=== PATIENT | male | born 1955 | race Caucasian/White ===

== ENCOUNTER 2024-09-14 17:44 | Outpatient (BNV) | payer OTHER, SELFPAY | END 2024-10-06 15:00 | PROVIDERS: Admitting Provider Psychiatry & Neurology Psychiatry; Visit Provider Internal Medicine | DX: I48.91 Unspecified atrial fibrillation (principal) | CPT/HCPCS: 93010 ==

== ENCOUNTER 2024-09-14 17:44 | Inpatient (IN) | payer OTHER, SELFPAY ==
[2024-09-14 18:17] VITALS: BMI 26.3
[2024-09-14 18:18] VITALS: BP 135/85; PULSE 89; RESP 18; TEMP 36.9; O2SAT 99
--- NOTE | 2024-09-14 19:15 | PC.ADMIT ---
Addendum entered by Shanthi Lang RN 09/14/24 19:17: Admitting Diagnoses: MDD-Severe, SI Original Note: 68 year old white male admitted to [facility]2 at 1810 from [facility] via ambulance on a 12 b signed in our ER. He refused to sign any paperwork including all ERWIN'S. His affect is blunted with poor eye contact. He said that he is homeless and that nobody can help him get better. He says that he feels like he has thoughts about hurting himself but no plan. He has +2 edema in bilateral feet. He has a small bruise in his LAC area that is fading. He said that he doesn't want to eat and won't fill out our menus. His other diagnoses include A Fib, HTN, CVA, Chronic B12 Deficiency, Bladder CA, Chronic Back Pain, Hypocholesteremia , Multi Level Degenerative Disk Disease and Sciatica. His weight is 168.2 pounds. Vital signs 98.5-18-89-99% and 135/85, left upper arm sitting. He only brought a light green kaci shirt with him. He never smoked. He said that he was a registered sex offender from 40 years ago in [place] or [place]. He denies pain. He is alert to self and place with poor insight into his situation. He says that he hears voices but won't elaborate on what they say. He needs a sitter for safety. Faith Desai CANAL EQUIPMENT MECHANIC updated on patients arrival. Patient has allergies to Vicodin, Acetaminophen and Lisinopril.
[2024-09-14] MEDS: Mirtazapine 15 MG TABLET PO (22:08)
[2024-09-14] MEDS: risperiDONE 1 MG TABLET PO (22:08)
[2024-09-14] MEDS: levETIRAcetam 500 MG TABLET 1500 MG PO (22:08)
[2024-09-14] MEDS: Docusate Sodium 100 MG CAPSULE PO (22:08)
[2024-09-14] MEDS: Atorvastatin Calcium 40 MG TABLET PO (22:08)
[2024-09-14] MEDS: Apixaban 5 MG TABLET PO (22:08)
[2024-09-15 07:54] LABS: Estimated Average Glucose 117 mg/dL; Hemoglobin A1c % 5.7 % (<6.0); Total Hemoglobin (HGBA1C) 3380.8135 umol/L
[2024-09-15 07:55] VITALS: BP 107/71; PULSE 88; RESP 18; TEMP 36.8; O2SAT 95
[2024-09-15 08:02] LABS: Alanine Aminotransferase 13 U/L (0-40); Albumin Level 3.1 g/dL (3.5-5.0); Anion Gap 11 (12-20); Aspartate Amino Transferase 24 U/L (5-37); Bilirubin Total 0.6 mg/dL (0.0-1.0); Blood Urea Nitrogen 15 mg/dL (9-16); Carbon Dioxide 29 mmol/L (22-29); Chloride 108 mmol/L (96-108); Cholesterol 154 mg/dL (<200); Creatinine Clr Calc Pharmacy 81.4; Estimated Glomerular Filt Rate > 60; Glucose Random 90 mg/dL (60-115); HDL Cholesterol 32 mg/dL (>40); LDL Cholesterol Calculated 101 mg/dL (<100); Potassium 3.9 mmol/L (3.3-5.1); Sodium 144 mmol/L (135-145); Total Protein 5.6 g/dL (6.5-8.0); Triglycerides 108 mg/dL (<150)
[2024-09-15] MEDS: Docusate Sodium 100 MG CAPSULE PO ×2 (08:09→21:36)
[2024-09-15] MEDS: Apixaban 5 MG TABLET PO ×2 (08:09→21:36)
[2024-09-15] MEDS: levETIRAcetam 500 MG TABLET 1500 MG PO ×2 (08:09→21:36)
[2024-09-15] MEDS: Metoprolol Succinate ER 50 MG TAB.ER.24H PO (08:09)
--- NOTE | 2024-09-15 08:45 | HO.PM.IMCN ---
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 Pt was at [facility] facility when clinical line maintenance technician came into patient's room and found him with one leg swung out over the windowsill, stating that he was attempting to jump out of the window in an SI attempt. Pt apparently has been having moments of AMS with the past few weeks. Medical consult for admission H&P. ?Pt seen and examined on the unit where he is noted to have severely flat affect and minimally responsive. Pt is alert and oriented to self only, and slow to respond to queries. Pt does not answer all questions, though does seemingly respond appropriately when he does speak. Follows commands appropriately. Pt denies any acute medical complaints at the moment. No chest pain/pressure, palpitations. Denies shortness or breath or difficulty breathing. Denies fever, chills, N/V, abdominal pain. Vitals reviewed, stable and WNL. Labs from [facility] reviewed, grossly unremarkable. However, pt had previously been diagnosed with a B12 deficiency which was thought possibly contributory to AMS, though MDD with psychosis more likely. Review of Systems Review of Systems: Negative except for that which is stated in the HPI. However, she will be noted pt is a relatively poor and vague historian. [facility] Medical History (Updated 09/15/24 @ 09:55 by BRIA Nunez) HTN (hypertension) CVA (cerebral vascular accident) Chronic a-fib Social History Household Members: Spouse Housing: Apartment Do you presently have visiting nurse or other home services: No Patient Tobacco Use Status: Never used Tobacco e-Cigarette/Vaping Use: Never Used Advance Directives: No Advance Directives Information Provided: No Do you have a plan to hurt others: No Plan Recently lost weight without trying: Unsure Meds Allergies Allergy/AdvReac Type Severity Reaction Status Date / Time acetaminophen Allergy Nausea Verified 09/14/24 18:37 hydrocodone [From Vicodin] Allergy Nausea and Verified 09/14/24 18:37 Vomiting lisinopril Allergy Cough Verified 09/14/24 18:37 Active Medications: Current Medications Al Hydroxide/Mg Hydroxide (Magnesium Hydrox/Alum Hydrox 30 Ml Oral.Susp) 30 ml PO Q6H PRN PRN Reason: Heartburn/Nausea Apixaban (Apixaban 5 Mg Tablet) 5 mg PO BID [facility] Last Admin: 09/15/24 08:09 Dose: 5 mg Atorvastatin Calcium (Atorvastatin Calcium 40 Mg Tablet) 40 mg PO BEDTIME [facility] Last Admin: 09/14/24 22:08 Dose: 40 mg Docusate Sodium (Docusate Sodium 100 Mg Capsule) 100 mg PO BID [facility] Last Admin: 09/15/24 08:09 Dose: 100 mg Hydroxyzine HCl (Hydroxyzine Hcl 25 Mg Tablet) 25 mg PO Q6H PRN PRN Reason: mild anxiety Levetiracetam (Levetiracetam 500 Mg Tablet) 1,500 mg PO BID [facility] Last Admin: 09/15/24 08:09 Dose: 1,500 mg Lidocaine (Lidocaine 4 % Patch Adh..Patch) 1 patch TRANSDERMA DAILY [facility] Last Admin: 09/15/24 08:14 Dose: Not Given Magnesium Hydroxide (Milk Of Magnesia 30 Ml Oral.Susp) 30 ml PO DAILY PRN PRN Reason: Constipation Methocarbamol (Methocarbamol 500 Mg Tablet) 1,000 mg PO TID PRN PRN Reason: Muscle Spasm Metoprolol Succinate (Metoprolol Succinate Er 50 Mg Tab.Er.24h) 50 mg PO DAILY [facility]; Protocol Last Admin: 09/15/24 08:09 Dose: 50 mg Mirtazapine (Mirtazapine 15 Mg Tablet) 15 mg PO BEDTIME [facility] Last Admin: 09/14/24 22:08 Dose: 15 mg Polyethylene Glycol (Polyethylene Glycol 3350 17 Gm Powd.Pack) 17 gm PO DAILY PRN PRN Reason: Constipation Risperidone (Risperidone 1 Mg Tablet) 1 mg PO BEDTIME [facility] Last Admin: 09/14/24 22:08 Dose: 1 mg Trazodone HCl (Trazodone Hcl 50 Mg Tablet) 50 mg PO BEDTIME MRX1 PRN PRN Reason: Insomnia Home Medications ?Medication ?Instructions ?Recorded ?Confirmed ?Last Taken ?Type apixaban 5 mg tablet 5 mg PO BID 09/14/24 09/14/24 Unknown History atorvastatin 40 mg tablet 40 mg PO BEDTIME 09/14/24 09/14/24 Unknown History docusate sodium 100 mg capsule 100 mg PO BID 09/14/24 09/14/24 Unknown History ibuprofen 600 mg tablet 600 mg PO Q6H PRN Pain 09/14/24 09/14/24 Unknown History levetiracetam 750 mg tablet 1,500 mg PO BID 09/14/24 09/14/24 Unknown History lidocaine 5 % topical patch 1 patch topical DAILY 09/14/24 09/14/24 Unknown History methocarbamol 500 mg tablet 1,000 mg PO TID PRN Muscle Spasm 09/14/24 09/14/24 Unknown History metoprolol succinate 50 mg 50 mg PO DAILY 09/14/24 09/14/24 Unknown History tablet,extended release 24 hr mirtazapine 15 mg tablet 15 mg PO BEDTIME 09/14/24 09/14/24 09/13/24 21:00 History polyethylene glycol 3350 17 gram 17 g PO DAILY PRN Constipation 09/14/24 09/14/24 Unknown History oral powder packet risperidone 1 mg tablet 1 mg PO BEDTIME 09/14/24 09/14/24 09/13/24 21:00 History Physical Exam Vital Signs and Narrative: Vital Signs: Last Vital Signs Temp 98.5 F 09/14/24 18:18 Pulse 89 09/14/24 18:18 Resp 18 09/14/24 18:18 BP 135/85 09/14/24 18:18 Pulse Ox 99 09/14/24 18:18 O2 Del Method Room Air 09/14/24 18:18 BMI result Body Mass Index 26.3 General: Alert and oriented to person only. In no acute distress Resp: CTA bilaterally CVS: Irregularly irregular rhythm. GI: +BS, NT, no distention Skin: Warm, dry Neuro: Cranial nerves II-XII grossly intact bilaterally. Motor grossly intact bilaterally Extremities: No edema Psych: Flat affect. Minimally responsive, not answering all questions, slow to respond. Follows commands. 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 Pt was at [facility] facility when clinical line maintenance technician came into patient's room and found him with one leg swung out over the windowsill, stating that he was attempting to jump out of the window in an SI attempt. Pt apparently has been having moments of AMS with the past few weeks. Medical consult for admission H&P. Mood disorder Plan as per Psychiatry Chronic AFib Continue Eliquis, metoprolol Idiopathic focal epilepsy Unclear date of last seizure Continue levetiracetam Hx of CVA No known focal deficits Continue statin B12 deficiency Recently diagnosed, does not appear to be on supplementation Will check B12 levels Had supplementation as necessary Thank you for allowing us to participate in the care of this pt. Will sign for now. Please re-consult if any acute issue or need arises.
[2024-09-15 12:58] LABS: Alkaline Phosphatase 80 U/L (39-117)
[2024-09-15 20:00] VITALS: BP 110/71; PULSE 90; RESP 18; TEMP 36.8; O2SAT 94
[2024-09-15] MEDS: risperiDONE 1 MG TABLET PO (21:35)
[2024-09-15] MEDS: Atorvastatin Calcium 40 MG TABLET PO (21:36)
[2024-09-15] MEDS: Mirtazapine 15 MG TABLET PO (21:36)
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
[2024-09-16 08:00] VITALS: BP 106/73; PULSE 104; RESP 18; TEMP 36.9; O2SAT 96
[2024-09-16] MEDS: Metoprolol Succinate ER 50 MG TAB.ER.24H PO (09:20)
[2024-09-16] MEDS: levETIRAcetam 500 MG TABLET 1500 MG PO ×2 (09:20→20:33)
[2024-09-16] MEDS: Apixaban 5 MG TABLET PO ×2 (09:20→20:33)
[2024-09-16] MEDS: Docusate Sodium 100 MG CAPSULE PO ×2 (09:20→20:40)
[2024-09-16 16:42] LABS: Vitamin B12 614 pg/mL (200-900)
[2024-09-16 19:52] VITALS: BP 119/87; PULSE 93; TEMP 36.9; O2SAT 98
[2024-09-16] MEDS: risperiDONE 1 MG TABLET PO (20:33)
[2024-09-16] MEDS: Atorvastatin Calcium 40 MG TABLET PO (20:33)
[2024-09-16] MEDS: Mirtazapine 15 MG TABLET PO (20:34)
--- NOTE | 2024-09-16 23:20 | P.PNPSI_ITS ---
Subjective Subjective Date of Service: 09/16/24 Reason For Visit: si confusion psychosis Subjective Notes: Conditional Voluntary Healthcare Proxy: Yes Interim History: Patient seen psychiatric follow-up, chart reviewed patient's case discussed in treatment team. Patient exhibits thought blocking limited speech when he does speak has been talking about needing to register as a sex offender having no place to live refusing food and fluids at times needs much encouragement T drink and take his medication Staring off into space at times appears to be posturing was treated with lorazepam at other hospital did not seem to be helpful Mental Status Exam Mental Status Exam Narrative: Patient seen sitting in the kitchen he is sitting in a rigid manner delayed speech awake mood restricted no facial limited facial expression not rigid on exam no gross tremor often does not respond to questioning at times mumbling in response other times non informational briefly responding one-word answers that make no sense Diagnostics Vital Signs (24Hr): Vital Signs - 24 hr 09/16/24 08:00 09/16/24 19:52 Temperature 98.4 F 98.4 F Pulse Rate 104 H 93 Respiratory Rate 18 Blood Pressure 106/73 119/87 Pulse Oximetry 96 98 Oxygen Delivery Method Room Air Room Air BMI result Body Mass Index 26.3 Labs 09/15/24 07:34 Labs: Laboratory Results - last 48 hr 09/15/24 09/16/24 07:34 15:38 Sodium 144 Potassium 3.9 Chloride 108 Carbon Dioxide 29 Anion Gap 11 L BUN 15 Creatinine 0.80 Estim Creat Clear Calc 81.4 Estimated GFR > 60 Random Glucose 90 Estimat Average Glucose 117 Hemoglobin A1c % 5.7 Calcium 9.0 Total Bilirubin 0.6 AST 24 ALT 13 Alkaline Phosphatase 80 Total Protein 5.6 L Albumin 3.1 L Triglycerides 108 Cholesterol 154 LDL Cholesterol, Calc 101 H HDL Cholesterol 32 L Vitamin B12 614 Folate 9.0 Medications Medications Current Medications Al Hydroxide/Mg Hydroxide (Magnesium Hydrox/Alum Hydrox 30 Ml Oral.Susp) 30 ml PO Q6H PRN PRN Reason: Heartburn/Nausea Apixaban (Apixaban 5 Mg Tablet) 5 mg PO BID [facility] Last Admin: 09/16/24 20:33 Dose: 5 mg Atorvastatin Calcium (Atorvastatin Calcium 40 Mg Tablet) 40 mg PO BEDTIME [facility] Last Admin: 09/16/24 20:33 Dose: 40 mg Docusate Sodium (Docusate Sodium 100 Mg Capsule) 100 mg PO BID [facility] Last Admin: 09/16/24 20:40 Dose: 100 mg Hydroxyzine HCl (Hydroxyzine Hcl 25 Mg Tablet) 25 mg PO Q6H PRN PRN Reason: mild anxiety Levetiracetam (Levetiracetam 500 Mg Tablet) 1,500 mg PO BID [facility] Last Admin: 09/16/24 20:33 Dose: 1,500 mg Lidocaine (Lidocaine 4 % Patch Adh..Patch) 1 patch TRANSDERMA DAILY [facility] Last Admin: 09/16/24 09:22 Dose: Not Given Magnesium Hydroxide (Milk Of Magnesia 30 Ml Oral.Susp) 30 ml PO DAILY PRN PRN Reason: Constipation Memantine (Memantine Hcl 5 Mg Tablet) 5 mg PO DAILY [facility] Methocarbamol (Methocarbamol 500 Mg Tablet) 1,000 mg PO TID PRN PRN Reason: Muscle Spasm Metoprolol Succinate (Metoprolol Succinate Er 50 Mg Tab.Er.24h) 50 mg PO DAILY [facility]; Protocol Last Admin: 09/16/24 09:20 Dose: 50 mg Mirtazapine (Mirtazapine 7.5 Mg Tablet) 22.5 mg PO BEDTIME [facility] Polyethylene Glycol (Polyethylene Glycol 3350 17 Gm Powd.Pack) 17 gm PO DAILY PRN PRN Reason: Constipation Risperidone (Risperidone 1 Mg Tablet) 1 mg PO BEDTIME [facility] Last Admin: 09/16/24 20:33 Dose: 1 mg Trazodone HCl (Trazodone Hcl 50 Mg Tablet) 50 mg PO BEDTIME MRX1 PRN PRN Reason: Insomnia Allergies Allergies Allergy/AdvReac Type Severity Reaction Status Date / Time acetaminophen Allergy Nausea Verified 09/14/24 18:37 hydrocodone [From Vicodin] Allergy Nausea and Verified 09/14/24 18:37 Vomiting lisinopril Allergy Cough Verified 09/14/24 18:37 Assessment & Plan Assessment & Plan (1) CVA (cerebral vascular accident): Status: Acute Code(s): I63.9 - Cerebral infarction, unspecified (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: Status: Acute Code(s): G40.209 - Localization-related (focal) (partial) symptomatic epilepsy and epileptic syndromes with complex partial seizures, not intractable, without status epilepticus (3) Chronic a-fib: Status: Acute Code(s): I48.20 - Chronic atrial fibrillation, unspecified (4) B12 deficiency: Status: Acute Code(s): E53.8 - Deficiency of other specified B group vitamins (5) Major depression with psychotic features: Status: Acute Code(s): F32.3 - Major depressive disorder, single episode, severe with psychotic features Plan Patient is a 68-year-old male with a reported history of atrial fibrillation nonconvulsive single origin seizures severe B12 deficiency some diffuse brain atrophy white matter lesions and cerebellar infarct how presenting with depressive symptoms recent thoughts of suicide and psychotic symptoms. Healthcare proxy invoked patient does not at this time. Able to taken information we then information and make judgments. Wellbutrin recently discontinued would continue Risperdal and mirtazapine. Will trying get Neurology involved MRI and EEG reviewed continue B12 for placement unclear if primary psychiatric disorder versus secondary to neurodegenerative condition perhaps worsened by B12 deficiency continue Keppra continue Eliquis monitor patient's safety Call placed to both healthcare proxy was unable to reach either daughter or patient keeps stating ex- unclear if this is reality based or not also unclear if patient's guilt is totally delusional there was some event that happened many years the past he reportedly had been arrested later exonerated. 09/16/2024 Continue Risperdal mirtazapine Keppra. Patient has healthcare proxy his ex- patient unable taken information expressed clear decisions his communication is limited peers delusional spends much time staring unclear if this relates to atypical seizure disorder versus psychotic depression question of catatonia variant. Seen neurological workup from his hospitalization including MRI EEG. Trying to get additional history from healthcare proxy family patient does have 2 daughters he reportedly lives with his ex- Informed Consent: does not understand Reason for continued inpatient stay Substantial Risk for: inability to function, rapid decompensation and med/psych decompensation Time Spent With Patient Time: Total time managing care of this patient today ____ minutes.
[2024-09-17 08:00] VITALS: BP 132/81; PULSE 68; RESP 18; TEMP 36.4; O2SAT 99
[2024-09-17] MEDS: Apixaban 5 MG TABLET PO (12:20)
[2024-09-17] MEDS: levETIRAcetam 500 MG TABLET 1500 MG PO (12:20)
[2024-09-17] MEDS: Cyanocobalamin (Vitamin B-12) 1,000 MCG/ML VIAL 1000 MCG IM (12:29)
[2024-09-17 20:00] VITALS: BP 121/57; PULSE 87; RESP 16; TEMP 36.3; O2SAT 98
--- NOTE | 2024-09-17 22:36 | PC.NURSE ---
Patient declined HS medication, educated by business writer about the importance of taking prescribed medications, Dr. Melo notified.
--- NOTE | 2024-09-17 23:28 | HO.PSYCHPN ---
Subjective Subjective Date of Service: 09/17/24 Reason For Visit: si confusion psychosis Subjective Notes: Conditional Voluntary Healthcare Proxy: Yes Interim History: Patient seen in psychiatric follow-up. Patient case reviewed in treatment team case discussed with patient's ex- his healthcare proxy that he lives with. Patient needs much encouragement to eat and drink sits and stares much time discussed with patient's healthcare proxy giving patient Valium injection if refusing Keppra unclear if staring lack of engagement relates to his atypical seizure disorder recently diagnosed. Mental Status Exam Mental Status Exam Narrative: Patient seen generally refusing to engaged not speaking some intake. Generally non informational encourage to eat drink take medication But did not engaged mostly seen staring unable to answer thoughts of harm to self or others Diagnostics Vital Signs (24Hr): Vital Signs - 24 hr 09/17/24 08:00 09/17/24 20:00 Temperature 97.5 F 97.4 F Pulse Rate 68 87 Respiratory Rate 18 16 Blood Pressure 132/81 121/57 L Pulse Oximetry 99 98 Oxygen Delivery Method Room Air Room Air BMI result Body Mass Index 26.3 Labs 09/15/24 07:34 Labs: Laboratory Results - last 48 hr 09/16/24 15:38 Vitamin B12 614 Folate 9.0 Medications Medications Current Medications Al Hydroxide/Mg Hydroxide (Magnesium Hydrox/Alum Hydrox 30 Ml Oral.Susp) 30 ml PO Q6H PRN PRN Reason: Heartburn/Nausea Apixaban (Apixaban 5 Mg Tablet) 5 mg PO BID [facility] Last Admin: 09/17/24 22:13 Dose: Not Given Atorvastatin Calcium (Atorvastatin Calcium 40 Mg Tablet) 40 mg PO BEDTIME [facility] Last Admin: 09/17/24 22:14 Dose: Not Given Cyanocobalamin (Cyanocobalamin (Vitamin B-12) 1,000 Mcg/Ml Vial) 1,000 mcg IM Q30D [facility] Last Admin: 09/17/24 12:29 Dose: 1,000 mcg Docusate Sodium (Docusate Sodium 100 Mg Capsule) 100 mg PO BID [facility] Last Admin: 09/17/24 22:14 Dose: Not Given Hydroxyzine HCl (Hydroxyzine Hcl 25 Mg Tablet) 25 mg PO Q6H PRN PRN Reason: mild anxiety Levetiracetam (Levetiracetam 500 Mg Tablet) 1,500 mg PO BID [facility] Last Admin: 09/17/24 22:14 Dose: Not Given Lidocaine (Lidocaine 4 % Patch Adh..Patch) 1 patch TRANSDERMA DAILY [facility] Last Admin: 09/17/24 12:21 Dose: Not Given Magnesium Hydroxide (Milk Of Magnesia 30 Ml Oral.Susp) 30 ml PO DAILY PRN PRN Reason: Constipation Memantine (Memantine Hcl 5 Mg Tablet) 5 mg PO DAILY [facility] Last Admin: 09/17/24 12:21 Dose: Not Given Methocarbamol (Methocarbamol 500 Mg Tablet) 1,000 mg PO TID PRN PRN Reason: Muscle Spasm Metoprolol Succinate (Metoprolol Succinate Er 50 Mg Tab.Er.24h) 50 mg PO DAILY [facility]; Protocol Last Admin: 09/17/24 12:21 Dose: Not Given Mirtazapine (Mirtazapine 7.5 Mg Tablet) 22.5 mg PO BEDTIME [facility] Last Admin: 09/17/24 22:14 Dose: Not Given Polyethylene Glycol (Polyethylene Glycol 3350 17 Gm Powd.Pack) 17 gm PO DAILY PRN PRN Reason: Constipation Risperidone (Risperidone 1 Mg Tablet) 1 mg PO BEDTIME [facility] Last Admin: 09/17/24 22:14 Dose: Not Given Trazodone HCl (Trazodone Hcl 50 Mg Tablet) 50 mg PO BEDTIME MRX1 PRN PRN Reason: Insomnia Allergies Allergies Allergy/AdvReac Type Severity Reaction Status Date / Time acetaminophen Allergy Nausea Verified 09/14/24 18:37 hydrocodone [From Vicodin] Allergy Nausea and Verified 09/14/24 18:37 Vomiting lisinopril Allergy Cough Verified 09/14/24 18:37 Assessment & Plan Assessment & Plan (1) CVA (cerebral vascular accident): Status: Acute Code(s): I63.9 - Cerebral infarction, unspecified (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: Status: Acute Code(s): G40.209 - Localization-related (focal) (partial) symptomatic epilepsy and epileptic syndromes with complex partial seizures, not intractable, without status epilepticus (3) Chronic a-fib: Status: Acute Code(s): I48.20 - Chronic atrial fibrillation, unspecified (4) B12 deficiency: Status: Acute Code(s): E53.8 - Deficiency of other specified B group vitamins (5) Major depression with psychotic features: Status: Acute Code(s): F32.3 - Major depressive disorder, single episode, severe with psychotic features Plan Patient is a 68-year-old male with a reported history of atrial fibrillation nonconvulsive single origin seizures severe B12 deficiency some diffuse brain atrophy white matter lesions and cerebellar infarct how presenting with depressive symptoms recent thoughts of suicide and psychotic symptoms. Healthcare proxy invoked patient does not at this time. Able to taken information we then information and make judgments. Wellbutrin recently discontinued would continue Risperdal and mirtazapine. Will trying get Neurology involved MRI and EEG reviewed continue B12 for placement unclear if primary psychiatric disorder versus secondary to neurodegenerative condition perhaps worsened by B12 deficiency continue Keppra continue Eliquis monitor patient's safety Call placed to both healthcare proxy was unable to reach either daughter or patient keeps stating ex- unclear if this is reality based or not also unclear if patient's guilt is totally delusional there was some event that happened many years the past he reportedly had been arrested later exonerated. 09/17/2024 Extensive discussion with healthcare proxy patient appears to be staring thought consideration of status which patient apparently experienced that the other hospital. Healthcare proxy gave permission to give injection of Valium if needed patient did eventually accept p.o. medication. Still trying to reviewed differential between cognitive neurological condition Guardian/Caregiver educated on: diagnosis, medication risk/benefits and medical condition Informed Consent: further education needed Reason for continued inpatient stay Substantial Risk for: harm to self, inability to function, rapid decompensation and med/psych decompensation Time Spent With Patient Time: Total time managing care of this patient today ____ minutes.
[2024-09-18 07:55] VITALS: BP 120/76; PULSE 90; RESP 18; TEMP 36.8; O2SAT 98
[2024-09-18] MEDS: LORazepam 1 MG TABLET PO ×2 (15:01→20:18)
[2024-09-18 20:00] VITALS: BP 111/73; PULSE 93; RESP 18; TEMP 36.5; O2SAT 97
[2024-09-18] MEDS: Apixaban 5 MG TABLET PO (20:15)
[2024-09-18] MEDS: risperiDONE 1 MG TABLET PO (20:15)
[2024-09-18] MEDS: Atorvastatin Calcium 40 MG TABLET PO (20:16)
[2024-09-18] MEDS: Mirtazapine 7.5 MG TABLET 22.5 MG PO (20:17)
[2024-09-18] MEDS: levETIRAcetam 500 MG TABLET 1500 MG PO (20:18)
--- NOTE | 2024-09-18 21:01 | HO.PSYCHPN ---
Subjective Subjective Date of Service: 09/18/24 Reason For Visit: si confusion psychosis Subjective Notes: Conditional Voluntary Healthcare Proxy: Yes Interim History: Pt standing in one place severe psychomotor retardation minimal responses to language not eating drinking Medication Compliance: No Mental Status Exam Mental Status Exam Narrative: Patient seen generally refusing to engaged not speaking some intake. Generally non informational encourage to eat drink take medication But did not engaged mostly seen staring unable to answer thoughts of harm to self or others at times rigidly standing Diagnostics Vital Signs (24Hr): Vital Signs - 24 hr 09/18/24 07:55 Temperature 98.2 F Pulse Rate 90 Respiratory Rate 18 Blood Pressure 120/76 Pulse Oximetry 98 Oxygen Delivery Method Room Air BMI result Body Mass Index 26.3 Labs 09/15/24 07:34 Medications Medications Current Medications Al Hydroxide/Mg Hydroxide (Magnesium Hydrox/Alum Hydrox 30 Ml Oral.Susp) 30 ml PO Q6H PRN PRN Reason: Heartburn/Nausea Apixaban (Apixaban 5 Mg Tablet) 5 mg PO BID [facility] Last Admin: 09/18/24 20:15 Dose: 5 mg Atorvastatin Calcium (Atorvastatin Calcium 40 Mg Tablet) 40 mg PO BEDTIME [facility] Last Admin: 09/18/24 20:16 Dose: 40 mg Cyanocobalamin (Cyanocobalamin (Vitamin B-12) 1,000 Mcg/Ml Vial) 1,000 mcg IM Q30D [facility] Last Admin: 09/17/24 12:29 Dose: 1,000 mcg Docusate Sodium (Docusate Sodium 100 Mg Capsule) 100 mg PO BID [facility] Last Admin: 09/18/24 11:38 Dose: Not Given Hydroxyzine HCl (Hydroxyzine Hcl 25 Mg Tablet) 25 mg PO Q6H PRN PRN Reason: mild anxiety Levetiracetam (Levetiracetam 500 Mg Tablet) 1,500 mg PO BID [facility] Last Admin: 09/18/24 20:18 Dose: 1,500 mg Lidocaine (Lidocaine 4 % Patch Adh..Patch) 1 patch TRANSDERMA DAILY [facility] Last Admin: 09/18/24 11:38 Dose: Not Given Lorazepam (Lorazepam 1 Mg Tablet) 1 mg PO TID [facility] Last Admin: 09/18/24 20:18 Dose: 1 mg Magnesium Hydroxide (Milk Of Magnesia 30 Ml Oral.Susp) 30 ml PO DAILY PRN PRN Reason: Constipation Memantine (Memantine Hcl 5 Mg Tablet) 5 mg PO DAILY [facility] Last Admin: 09/18/24 11:38 Dose: Not Given Methocarbamol (Methocarbamol 500 Mg Tablet) 1,000 mg PO TID PRN PRN Reason: Muscle Spasm Metoprolol Succinate (Metoprolol Succinate Er 50 Mg Tab.Er.24h) 50 mg PO DAILY [facility]; Protocol Last Admin: 09/18/24 11:38 Dose: Not Given Mirtazapine (Mirtazapine 7.5 Mg Tablet) 22.5 mg PO BEDTIME [facility] Last Admin: 09/18/24 20:17 Dose: 22.5 mg Polyethylene Glycol (Polyethylene Glycol 3350 17 Gm Powd.Pack) 17 gm PO DAILY PRN PRN Reason: Constipation Risperidone (Risperidone 1 Mg Tablet) 1 mg PO BEDTIME [facility] Last Admin: 09/18/24 20:15 Dose: 1 mg Trazodone HCl (Trazodone Hcl 50 Mg Tablet) 50 mg PO BEDTIME MRX1 PRN PRN Reason: Insomnia Allergies Allergies Allergy/AdvReac Type Severity Reaction Status Date / Time acetaminophen Allergy Nausea Verified 09/14/24 18:37 hydrocodone [From Vicodin] Allergy Nausea and Verified 09/14/24 18:37 Vomiting lisinopril Allergy Cough Verified 09/14/24 18:37 Assessment & Plan Assessment & Plan (1) Major depression with psychotic features: Status: Acute Code(s): F32.3 - Major depressive disorder, single episode, severe with psychotic features (2) CVA (cerebral vascular accident): Status: Acute Code(s): I63.9 - Cerebral infarction, unspecified (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: Status: Acute Code(s): G40.209 - Localization-related (focal) (partial) symptomatic epilepsy and epileptic syndromes with complex partial seizures, not intractable, without status epilepticus (4) Chronic a-fib: Status: Acute Code(s): I48.20 - Chronic atrial fibrillation, unspecified (5) B12 deficiency: Status: Acute Code(s): E53.8 - Deficiency of other specified B group vitamins Plan Patient is a 68-year-old male with a reported history of atrial fibrillation nonconvulsive single origin seizures severe B12 deficiency some diffuse brain atrophy white matter lesions and cerebellar infarct how presenting with depressive symptoms recent thoughts of suicide and psychotic symptoms. Healthcare proxy invoked patient does not at this time. Able to taken information we then information and make judgments. Wellbutrin recently discontinued would continue Risperdal and mirtazapine. Will trying get Neurology involved MRI and EEG reviewed continue B12 for placement unclear if primary psychiatric disorder versus secondary to neurodegenerative condition perhaps worsened by B12 deficiency continue Keppra continue Eliquis monitor patient's [id number]/1809/18/24 neuro consult lorazepam for catatonia Patient educated on: diagnosis, medication risk/benefits and medical condition Guardian/Caregiver educated on: diagnosis and medication risk/benefits Informed Consent: further education needed Reason for continued inpatient stay Substantial Risk for: inability to function, rapid decompensation and med/psych decompensation Time Spent With Patient Time: Total time managing care of this patient today ____ minutes.
[2024-09-19 07:55] VITALS: BP 161/88; PULSE 97; RESP 18; TEMP 36.7; O2SAT 98
[2024-09-19] MEDS: Metoprolol Succinate ER 50 MG TAB.ER.24H PO (07:58)
[2024-09-19] MEDS: Memantine HCl 5 MG TABLET PO (07:58)
[2024-09-19] MEDS: LORazepam 1 MG TABLET PO ×3 (07:58→19:48)
[2024-09-19] MEDS: levETIRAcetam 500 MG TABLET 1500 MG PO ×2 (07:58→19:48)
[2024-09-19] MEDS: Apixaban 5 MG TABLET PO ×2 (07:59→19:48)
[2024-09-19] MEDS: Docusate Sodium 100 MG CAPSULE PO ×2 (07:59→19:48)
--- NOTE | 2024-09-19 16:54 | PM.NEUROCN ---
History of Present Illness Data of Consult Service Date: 09/19/24 Primary Care Provider: Unknown Physician HPI This is a 68-year-old male who does not provide much by way of Hx and is withdrawn, admitted with suicidal ideation and major depression. History obtained from medical records. Apparently , he has a history of ? atypical seizures, significant B12 deficiency, atrial fibrillation, history of DVT on anticoagulation and history of cerebellar stroke. He had recently been hospitalized in August 2024 for encephalopathy, with a diagnosis of B12 deficiency pernicious anemia. EEG showed diffuse background slowing. MRI showed chronic ischemic changes. He was noted to confusion delusional thinking and was thought to be suffering from B12 there psychiatric syndrome. He was referred to rehab and then referred back to the hospital after appearing depressed suicidal delusional with significantly impaired [place] and executive dysfunction. He had been preoccupied with the fact that he had been a sexual predator was ruminating about guilt but generally minimally verbal mostly withdrawn internally preoccupied minimally interacting. [facility] Past Medical History Medical History (Updated 09/15/24 @ 23:33 by Dayne Diaz MD) HTN (hypertension) CVA (cerebral vascular accident) Chronic a-fib Social History Social History Household Members: Spouse Housing: Apartment Do you presently have visiting nurse or other home services: No Patient Tobacco Use Status: Never used Tobacco e-Cigarette/Vaping Use: Never Used Currently Displaying Signs/Symptoms of Drug Intoxication Withdrawal: No Advance Directives: No Advance Directives Information Provided: No Do you have a plan to hurt others: No Plan Recently lost weight without trying: Unsure service: No Sexual orientation: Straight/Heterosexual Meds Allergies Allergy/AdvReac Type Severity Reaction Status Date / Time acetaminophen Allergy Nausea Verified 09/14/24 18:37 hydrocodone [From Vicodin] Allergy Nausea and Verified 09/14/24 18:37 Vomiting lisinopril Allergy Cough Verified 09/14/24 18:37 Active Medications: Current Medications Al Hydroxide/Mg Hydroxide (Magnesium Hydrox/Alum Hydrox 30 Ml Oral.Susp) 30 ml PO Q6H PRN PRN Reason: Heartburn/Nausea Apixaban (Apixaban 5 Mg Tablet) 5 mg PO BID [facility] Last Admin: 09/19/24 07:59 Dose: 5 mg Atorvastatin Calcium (Atorvastatin Calcium 40 Mg Tablet) 40 mg PO BEDTIME [facility] Last Admin: 09/18/24 20:16 Dose: 40 mg Cyanocobalamin (Cyanocobalamin (Vitamin B-12) 1,000 Mcg/Ml Vial) 1,000 mcg IM Q30D [facility] Last Admin: 09/17/24 12:29 Dose: 1,000 mcg Docusate Sodium (Docusate Sodium 100 Mg Capsule) 100 mg PO BID [facility] Last Admin: 09/19/24 07:59 Dose: 100 mg Hydroxyzine HCl (Hydroxyzine Hcl 25 Mg Tablet) 25 mg PO Q6H PRN PRN Reason: mild anxiety Levetiracetam (Levetiracetam 500 Mg Tablet) 1,500 mg PO BID [facility] Last Admin: 09/19/24 07:58 Dose: 1,500 mg Lidocaine (Lidocaine 4 % Patch Adh..Patch) 1 patch TRANSDERMA DAILY [facility] Last Admin: 09/19/24 08:02 Dose: Not Given Lorazepam (Lorazepam 1 Mg Tablet) 1 mg PO TID [facility] Last Admin: 09/19/24 14:34 Dose: 1 mg Magnesium Hydroxide (Milk Of Magnesia 30 Ml Oral.Susp) 30 ml PO DAILY PRN PRN Reason: Constipation Memantine (Memantine Hcl 5 Mg Tablet) 5 mg PO DAILY [facility] Last Admin: 09/19/24 07:58 Dose: 5 mg Methocarbamol (Methocarbamol 500 Mg Tablet) 1,000 mg PO TID PRN PRN Reason: Muscle Spasm Metoprolol Succinate (Metoprolol Succinate Er 50 Mg Tab.Er.24h) 50 mg PO DAILY [facility]; Protocol Last Admin: 09/19/24 07:58 Dose: 50 mg Mirtazapine (Mirtazapine 7.5 Mg Tablet) 22.5 mg PO BEDTIME [facility] Last Admin: 09/18/24 20:17 Dose: 22.5 mg Polyethylene Glycol (Polyethylene Glycol 3350 17 Gm Powd.Pack) 17 gm PO DAILY PRN PRN Reason: Constipation Risperidone (Risperidone 1 Mg Tablet) 1 mg PO BEDTIME [facility] Last Admin: 09/18/24 20:15 Dose: 1 mg Trazodone HCl (Trazodone Hcl 50 Mg Tablet) 50 mg PO BEDTIME MRX1 PRN PRN Reason: Insomnia Home Medications ?Medication ?Instructions ?Recorded ?Confirmed ?Last Taken ?Type apixaban 5 mg tablet 5 mg PO BID 09/14/24 09/14/24 Unknown History atorvastatin 40 mg tablet 40 mg PO BEDTIME 09/14/24 09/14/24 Unknown History docusate sodium 100 mg capsule 100 mg PO BID 09/14/24 09/14/24 Unknown History ibuprofen 600 mg tablet 600 mg PO Q6H PRN Pain 09/14/24 09/14/24 Unknown History levetiracetam 750 mg tablet 1,500 mg PO BID 09/14/24 09/14/24 Unknown History lidocaine 5 % topical patch 1 patch topical DAILY 09/14/24 09/14/24 Unknown History methocarbamol 500 mg tablet 1,000 mg PO TID PRN Muscle Spasm 09/14/24 09/14/24 Unknown History metoprolol succinate 50 mg 50 mg PO DAILY 09/14/24 09/14/24 Unknown History tablet,extended release 24 hr mirtazapine 15 mg tablet 15 mg PO BEDTIME 09/14/24 09/14/24 09/13/24 21:00 History polyethylene glycol 3350 17 gram 17 g PO DAILY PRN Constipation 09/14/24 09/14/24 Unknown History oral powder packet risperidone 1 mg tablet 1 mg PO BEDTIME 09/14/24 09/14/24 09/13/24 21:00 History Physical Exam Vital Signs: Vital Signs: Last Vital Signs Temp 98.0 F 09/19/24 07:55 Pulse 97 09/19/24 07:55 Resp 18 09/19/24 07:55 BP 161/88 H 09/19/24 07:55 Pulse Ox 98 09/19/24 07:55 O2 Del Method Room Air 09/19/24 07:55 BMI result Body Mass Index 26.3 Neuro: Other: withdrawn with poor cooperation with exam. Non focal exam grossly. 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 He is already of a moderately large dose of Keppra 1500mg bid. Would schedule another EEG. If it melchor snot show any Sz, would reduce dose of keppra to 1gm bid to see if his mentation improves. Out patient 48hr ambulatory EEG to try and pin down Dx of Sz. If that is negative, would reduce Keppra further to 500mg bid (2) Major depression with psychotic features: Status: Acute Treat depression. Recheck B12 levels and continue SQ B12 inj every week for a month then every 2 weeks. (3) CVA (cerebral vascular accident): Status: Acute No evidence of acute stroke. Obtain recent MRi done elsewhere and other med records Procedures Date of Service Date of Service: 09/19/24
[2024-09-19] MEDS: Atorvastatin Calcium 40 MG TABLET PO (19:48)
[2024-09-19] MEDS: risperiDONE 1 MG TABLET PO (19:48)
[2024-09-19] MEDS: Mirtazapine 7.5 MG TABLET 22.5 MG PO (19:48)
[2024-09-19 20:00] VITALS: BP 109/75; PULSE 90; TEMP 36.4; O2SAT 97
--- NOTE | 2024-09-19 22:18 | HO.PSYCHPN ---
Subjective Subjective Date of Service: 09/19/24 Reason For Visit: si confusion psychosis Interim History: Patient was seen in common room, after getting off phone with his . Asking about his clothes. Asking if is coming. Presents as more oriented, still come momentary confusions and some long delays in responses. Ruminative, expresses some vague regret about the past, does not share. Responded to a majority of questions, but many answers were not quite congruent. since I've been here, been going back, not forward, trying to get back to where I was also adds that I think about the things I have done, the things I have done weigh on me...I already explained this (to the other doctor MOod: not really so bad . Endorses transient passive SI, no plan or intent. Sleeping okay unsure how long. Denies AVH. Per staff, he is Review of Systems Review of Systems Negative except for that which is stated in the HPI. However, she will be noted pt is a relatively poor and vague historian. Mental Status Exam Mental Status Exam Patient Appearance: Well Grooomed (hair groomed, shirt mildly soiled) Patient Orientation: Person Level of Consciousness: Awake and Alert Patient Behavior: Guarded, Distractible and Isolative Mood Description: Anxious and Blunted Affect Description: Apathetic Patient Cognition Impaired: Yes Ability to Follow Directions: Fair Speech Pattern: Rambling and Delayed Memory Description: Immediate Impaired and Trip Follower Impaired Hallucinations: None Delusions: Not Present Thought Process: Distracted, Rumination and Slowed Thinking Thought Content: positive for Disoriented, positive for Preoccupation, positive for Evasive and positive for Suicidal Ideation Depressive Symptoms: Difficulty Concentrating Diagnostics Vital Signs (24Hr): Vital Signs - 24 hr 09/19/24 07:55 09/19/24 20:00 Temperature 98.0 F 97.5 F Pulse Rate 97 90 Respiratory Rate 18 Blood Pressure 161/88 H 109/75 Pulse Oximetry 98 97 Oxygen Delivery Method Room Air Room Air BMI result Body Mass Index 26.3 Labs 09/15/24 07:34 Medications Medications Current Medications Al Hydroxide/Mg Hydroxide (Magnesium Hydrox/Alum Hydrox 30 Ml Oral.Susp) 30 ml PO Q6H PRN PRN Reason: Heartburn/Nausea Apixaban (Apixaban 5 Mg Tablet) 5 mg PO BID [facility] Last Admin: 09/19/24 19:48 Dose: 5 mg Atorvastatin Calcium (Atorvastatin Calcium 40 Mg Tablet) 40 mg PO BEDTIME [facility] Last Admin: 09/19/24 19:48 Dose: 40 mg Cyanocobalamin (Cyanocobalamin (Vitamin B-12) 1,000 Mcg/Ml Vial) 1,000 mcg IM Q30D [facility] Last Admin: 09/17/24 12:29 Dose: 1,000 mcg Docusate Sodium (Docusate Sodium 100 Mg Capsule) 100 mg PO BID [facility] Last Admin: 09/19/24 19:48 Dose: 100 mg Hydroxyzine HCl (Hydroxyzine Hcl 25 Mg Tablet) 25 mg PO Q6H PRN PRN Reason: mild anxiety Levetiracetam (Levetiracetam 500 Mg Tablet) 1,500 mg PO BID [facility] Last Admin: 09/19/24 19:48 Dose: 1,500 mg Lidocaine (Lidocaine 4 % Patch Adh..Patch) 1 patch TRANSDERMA DAILY [facility] Last Admin: 09/19/24 08:02 Dose: Not Given Lorazepam (Lorazepam 1 Mg Tablet) 1 mg PO TID [facility] Last Admin: 09/19/24 19:48 Dose: 1 mg Magnesium Hydroxide (Milk Of Magnesia 30 Ml Oral.Susp) 30 ml PO DAILY PRN PRN Reason: Constipation Memantine (Memantine Hcl 5 Mg Tablet) 5 mg PO DAILY [facility] Last Admin: 09/19/24 07:58 Dose: 5 mg Methocarbamol (Methocarbamol 500 Mg Tablet) 1,000 mg PO TID PRN PRN Reason: Muscle Spasm Metoprolol Succinate (Metoprolol Succinate Er 50 Mg Tab.Er.24h) 50 mg PO DAILY [facility]; Protocol Last Admin: 09/19/24 07:58 Dose: 50 mg Mirtazapine (Mirtazapine 7.5 Mg Tablet) 22.5 mg PO BEDTIME [facility] Last Admin: 09/19/24 19:48 Dose: 22.5 mg Polyethylene Glycol (Polyethylene Glycol 3350 17 Gm Powd.Pack) 17 gm PO DAILY PRN PRN Reason: Constipation Risperidone (Risperidone 1 Mg Tablet) 1 mg PO BEDTIME [facility] Last Admin: 09/19/24 19:48 Dose: 1 mg Trazodone HCl (Trazodone Hcl 50 Mg Tablet) 50 mg PO BEDTIME MRX1 PRN PRN Reason: Insomnia Allergies Allergies Allergy/AdvReac Type Severity Reaction Status Date / Time acetaminophen Allergy Nausea Verified 09/14/24 18:37 hydrocodone [From Vicodin] Allergy Nausea and Verified 09/14/24 18:37 Vomiting lisinopril Allergy Cough Verified 09/14/24 18:37 Assessment & Plan Assessment & Plan (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 He is already of a moderately large dose of Keppra 1500mg bid. Would schedule another EEG. If it melchor snot show any Sz, would reduce dose of keppra to 1gm bid to see if his mentation improves. Out patient 48hr ambulatory EEG to try and pin down Dx of Sz. If that is negative, would reduce Keppra further to 500mg bid (2) Major depression with psychotic features: Status: Acute Code(s): F32.3 - Major depressive disorder, single episode, severe with psychotic features Assessment and Plan: Treat depression. Recheck B12 levels and continue SQ B12 inj every week for a month then every 2 weeks. (3) CVA (cerebral vascular accident): Status: Acute Code(s): I63.9 - Cerebral infarction, unspecified Assessment and Plan: No evidence of acute stroke. Obtain recent MRi done elsewhere and other med records Reason for continued inpatient stay Substantial Risk for: inability to function and rapid decompensation Time Spent With Patient Time: Total time managing care of this patient today ____ minutes.
--- NOTE | 2024-09-20 | EEG_ITS ---
FINDINGS: The waking background activity consists of a well-defined 10 Hz posterior alpha frequency that is seen symmetrically and attenuates well with eye opening while low voltage fast frequencies predominate anteriorly. Photic stimulation is without activation. Hyperventilation was omitted. No focal, lateralizing, or paroxysmal discharges seen. IMPRESSION: This waking EEG is within normal limits. MD CUONG Upton/YULISSA / [id number]
[2024-09-20 08:00] VITALS: BP 133/65; PULSE 91; RESP 18; O2SAT 98
[2024-09-20] MEDS: LORazepam 1 MG TABLET PO ×3 (08:47→20:32)
[2024-09-20] MEDS: Metoprolol Succinate ER 50 MG TAB.ER.24H PO (08:47)
[2024-09-20] MEDS: levETIRAcetam 500 MG TABLET 1500 MG PO ×2 (08:47→20:31)
[2024-09-20] MEDS: Docusate Sodium 100 MG CAPSULE PO ×2 (08:48→20:31)
[2024-09-20] MEDS: Memantine HCl 5 MG TABLET PO (08:48)
[2024-09-20] MEDS: Apixaban 5 MG TABLET PO ×2 (08:48→20:31)
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
[2024-09-20 20:00] VITALS: BP 144/102; PULSE 84; TEMP 36.6; O2SAT 99
[2024-09-20] MEDS: Atorvastatin Calcium 40 MG TABLET PO (20:31)
[2024-09-20] MEDS: risperiDONE 1 MG TABLET PO (20:32)
[2024-09-20] MEDS: Mirtazapine 7.5 MG TABLET 22.5 MG PO (20:32)
[2024-09-20] MEDS: traZODone HCL 50 MG TABLET PO (22:19)
[2024-09-20] MEDS: hydrOXYzine HCL 25 MG TABLET PO (22:19)
[2024-09-21 07:00] VITALS: BP 138/60; PULSE 87; RESP 18; TEMP 36.9; O2SAT 98
[2024-09-21] MEDS: Docusate Sodium 100 MG CAPSULE PO ×2 (08:03→19:59)
[2024-09-21] MEDS: LORazepam 1 MG TABLET PO ×3 (08:03→19:58)
[2024-09-21] MEDS: Apixaban 5 MG TABLET PO ×2 (08:03→19:58)
[2024-09-21] MEDS: Metoprolol Succinate ER 50 MG TAB.ER.24H PO (08:03)
[2024-09-21] MEDS: Memantine HCl 5 MG TABLET PO (08:03)
[2024-09-21] MEDS: levETIRAcetam 500 MG TABLET 1500 MG PO ×2 (08:03→19:59)
[2024-09-21 19:56] VITALS: BP 119/79; PULSE 83; RESP 16; TEMP 36.4; O2SAT 96
[2024-09-21] MEDS: risperiDONE 1 MG TABLET PO (19:58)
[2024-09-21] MEDS: Mirtazapine 7.5 MG TABLET 22.5 MG PO (19:58)
[2024-09-21] MEDS: Atorvastatin Calcium 40 MG TABLET PO (19:59)
[2024-09-22 07:55] VITALS: BP 108/61; PULSE 92; RESP 18; TEMP 37; O2SAT 92
[2024-09-22] MEDS: Memantine HCl 5 MG TABLET PO (08:05)
[2024-09-22] MEDS: Docusate Sodium 100 MG CAPSULE PO ×2 (08:05→20:39)
[2024-09-22] MEDS: Apixaban 5 MG TABLET PO ×2 (08:05→20:39)
[2024-09-22] MEDS: Metoprolol Succinate ER 50 MG TAB.ER.24H PO (08:05)
[2024-09-22] MEDS: levETIRAcetam 500 MG TABLET 1500 MG PO ×2 (08:05→20:39)
[2024-09-22] MEDS: LORazepam 1 MG TABLET PO ×3 (08:05→20:38)
[2024-09-22 20:00] VITALS: BP 115/73; PULSE 82; RESP 16; TEMP 37.3; O2SAT 97
[2024-09-22] MEDS: Atorvastatin Calcium 40 MG TABLET PO (20:39)
[2024-09-22] MEDS: risperiDONE 1 MG TABLET PO (20:39)
[2024-09-22] MEDS: Mirtazapine 7.5 MG TABLET 22.5 MG PO (20:39)
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
[2024-09-23 07:58] VITALS: BP 114/69; PULSE 84; RESP 16; TEMP 37; O2SAT 100
[2024-09-23] MEDS: Metoprolol Succinate ER 50 MG TAB.ER.24H PO (08:01)
[2024-09-23] MEDS: ARIPiprazole 5 MG TABLET PO (08:01)
[2024-09-23] MEDS: levETIRAcetam 250 MG TABLET 750 MG PO ×2 (08:02→20:34)
[2024-09-23] MEDS: Apixaban 5 MG TABLET PO ×2 (08:02→20:35)
[2024-09-23] MEDS: Docusate Sodium 100 MG CAPSULE PO ×2 (08:02→20:34)
[2024-09-23] MEDS: Memantine HCl 5 MG TABLET PO (08:02)
[2024-09-23] MEDS: LORazepam 1 MG TABLET PO ×3 (08:02→20:35)
--- NOTE | 2024-09-23 11:13 | PC.NURSE ---
ACLS score of 4.0. This indicates the lower functioning end of MODERATE cognitive impairment, closer to severe than mild. A person with this score would be expected to have severe difficulties solving any problems outside of their own simple routine. Safety awareness is very impaired and dangerous objects must be kept out of reach/sight. There would be no new independent learning ability, carryover would be limited and situation specific, skills may not be generalized. 4-12 yrs in terms of cognitive capacity. Needs 42% cognitive assistance.
[2024-09-23 11:21] VITALS: BMI 26.0
[2024-09-23 20:00] VITALS: BP 118/69; PULSE 82; RESP 16; TEMP 36.9; O2SAT 94
[2024-09-23] MEDS: Atorvastatin Calcium 40 MG TABLET PO (20:35)
[2024-09-23] MEDS: Mirtazapine 30 MG TABLET PO (20:35)
[2024-09-24 08:23] VITALS: BP 125/76; PULSE 94; RESP 16; TEMP 36.7; O2SAT 99
[2024-09-24] MEDS: Lidocaine 4 % Patch ADH..PATCH 1 PATCH TRANSDERMA (08:24)
[2024-09-24] MEDS: LORazepam 1 MG TABLET PO (08:26)
[2024-09-24] MEDS: Apixaban 5 MG TABLET PO ×2 (08:26→19:59)
[2024-09-24] MEDS: Docusate Sodium 100 MG CAPSULE PO ×2 (08:26→19:59)
[2024-09-24] MEDS: levETIRAcetam 250 MG TABLET 750 MG PO ×2 (08:26→19:59)
[2024-09-24] MEDS: Metoprolol Succinate ER 50 MG TAB.ER.24H PO (08:26)
[2024-09-24] MEDS: Memantine HCl 5 MG TABLET PO (08:26)
[2024-09-24] MEDS: ARIPiprazole 5 MG TABLET PO (08:26)
--- NOTE | 2024-09-24 11:27 | P.PNPSI_ITS ---
Subjective Subjective Date of Service: 09/24/24 Reason For Visit: si confusion psychosis Interim History: perseverative, labile, feeling confused. tearful. states he is having a hard time motivating to perform ADLs. appears to have severely impaired executive function. per staff, c/o high depression and anxiety. eating well. less hesitation. taking meds. slept well overnight. Mental Status Exam Mental Status Exam Narrative: Patient casually dressed psychomotor retarded slowed mentation. Patient knows he is in a hospital. Patient depressed ruminating of perceived deficits. cooperative. nml rate, incr amount of speech. constricted, labile (tearful). no SI/HI/AVH expressed. Diagnostics Vital Signs (24Hr): Vital Signs - 24 hr 09/23/24 20:00 09/24/24 08:23 Temperature 98.4 F 98.1 F Pulse Rate 82 94 Respiratory Rate 16 16 Blood Pressure 118/69 125/76 Pulse Oximetry 94 99 Oxygen Delivery Method Room Air Room Air BMI result Body Mass Index 26.0 Labs 09/15/24 07:34 Medications Medications Current Medications Al Hydroxide/Mg Hydroxide (Magnesium Hydrox/Alum Hydrox 30 Ml Oral.Susp) 30 ml PO Q6H PRN PRN Reason: Heartburn/Nausea Apixaban (Apixaban 5 Mg Tablet) 5 mg PO BID [facility] Last Admin: 09/24/24 08:26 Dose: 5 mg Aripiprazole (Aripiprazole 5 Mg Tablet) 5 mg PO DAILY [facility] Last Admin: 09/24/24 08:26 Dose: 5 mg Atorvastatin Calcium (Atorvastatin Calcium 40 Mg Tablet) 40 mg PO BEDTIME [facility] Last Admin: 09/23/24 20:35 Dose: 40 mg Cyanocobalamin (Cyanocobalamin (Vitamin B-12) 1,000 Mcg/Ml Vial) 1,000 mcg IM Q30D [facility] Last Admin: 09/17/24 12:29 Dose: 1,000 mcg Docusate Sodium (Docusate Sodium 100 Mg Capsule) 100 mg PO BID [facility] Last Admin: 09/24/24 08:26 Dose: 100 mg Hydroxyzine HCl (Hydroxyzine Hcl 25 Mg Tablet) 25 mg PO Q6H PRN PRN Reason: mild anxiety Last Admin: 09/20/24 22:19 Dose: 25 mg Levetiracetam (Levetiracetam 250 Mg Tablet) 750 mg PO BID [facility] Last Admin: 09/24/24 08:26 Dose: 750 mg Lidocaine (Lidocaine 4 % Patch Adh..Patch) 1 patch TRANSDERMA DAILY [facility] Last Admin: 09/24/24 08:24 Dose: 1 patch Lorazepam (Lorazepam 1 Mg Tablet) 1 mg PO TID [facility] Last Admin: 09/24/24 08:26 Dose: 1 mg Magnesium Hydroxide (Milk Of Magnesia 30 Ml Oral.Susp) 30 ml PO DAILY PRN PRN Reason: Constipation Memantine (Memantine Hcl 5 Mg Tablet) 5 mg PO DAILY [facility] Last Admin: 09/24/24 08:26 Dose: 5 mg Methocarbamol (Methocarbamol 500 Mg Tablet) 1,000 mg PO TID PRN PRN Reason: Muscle Spasm Metoprolol Succinate (Metoprolol Succinate Er 50 Mg Tab.Er.24h) 50 mg PO DAILY [facility]; Protocol Last Admin: 09/24/24 08:26 Dose: 50 mg Mirtazapine (Mirtazapine 30 Mg Tablet) 30 mg PO BEDTIME [facility] Last Admin: 09/23/24 20:35 Dose: 30 mg Polyethylene Glycol (Polyethylene Glycol 3350 17 Gm Powd.Pack) 17 gm PO DAILY PRN PRN Reason: Constipation Trazodone HCl (Trazodone Hcl 50 Mg Tablet) 50 mg PO BEDTIME MRX1 PRN PRN Reason: Insomnia Last Admin: 09/20/24 22:19 Dose: 50 mg Allergies Allergies Allergy/AdvReac Type Severity Reaction Status Date / Time acetaminophen Allergy Nausea Verified 09/14/24 18:37 hydrocodone [From Vicodin] Allergy Nausea and Verified 09/14/24 18:37 Vomiting lisinopril Allergy Cough Verified 09/14/24 18:37 Assessment & Plan Assessment & Plan (1) Major depression with psychotic features: Status: Acute Code(s): F32.3 - Major depressive disorder, single episode, severe with psychotic features (2) CVA (cerebral vascular accident): Status: Acute Code(s): I63.9 - Cerebral infarction, unspecified (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: Status: Acute Code(s): G40.209 - Localization-related (focal) (partial) symptomatic epilepsy and epileptic syndromes with complex partial seizures, not intractable, without status epilepticus (4) Chronic a-fib: Status: Acute Code(s): I48.20 - Chronic atrial fibrillation, unspecified (5) B12 deficiency: Status: Acute Code(s): E53.8 - Deficiency of other specified B group vitamins Plan Patient is a 68-year-old male with a reported history of atrial fibrillation nonconvulsive single origin seizures severe B12 deficiency some diffuse brain atrophy white matter lesions and cerebellar infarct how presenting with depressive symptoms recent thoughts of suicide and psychotic symptoms. Healthcare proxy invoked patient does not at this time. Able to taken information we then information and make judgments. Wellbutrin recently discontinued would continue Risperdal and mirtazapine. Will trying get Neurology involved MRI and EEG reviewed continue B12 for placement unclear if primary psychiatric disorder versus secondary to neurodegenerative condition perhaps worsened by B12 deficiency continue Keppra continue Eliquis monitor patient's safety09/1809/18/24 neuro consult lorazepam for catatonia 09/21/24 eeg ordered mirtazapine hs risperadol 09/22/24 eeg unl lower keppra start abilify recent catatonia psychotically distressed 09/24 anxious distress, recent catatonia, mood lability. increase ativan from 1 TID to 1.5 TID for now. otherwise continue current mgmt. EEG WNL. awaiting brain MRI from OSH for review. Reason for continued inpatient stay Substantial Risk for: inability to function Time Spent With Patient Time: Total time managing care of this patient today _25___ minutes.
[2024-09-24] MEDS: LORazepam 0.5 MG TABLET 1.5 MG PO ×2 (14:51→19:59)
[2024-09-24 19:51] VITALS: BP 119/79; PULSE 86; RESP 16; TEMP 36.3; O2SAT 96
[2024-09-24] MEDS: Mirtazapine 30 MG TABLET PO (19:59)
[2024-09-24] MEDS: Atorvastatin Calcium 40 MG TABLET PO (19:59)
[2024-09-25 08:00] VITALS: BP 115/73; PULSE 91; RESP 18; TEMP 36.6; O2SAT 98
[2024-09-25] MEDS: Lidocaine 4 % Patch ADH..PATCH 1 PATCH TRANSDERMA (08:10)
[2024-09-25] MEDS: Docusate Sodium 100 MG CAPSULE PO ×2 (08:12→19:45)
[2024-09-25] MEDS: levETIRAcetam 250 MG TABLET 750 MG PO ×2 (08:12→19:44)
[2024-09-25] MEDS: Memantine HCl 5 MG TABLET PO (08:12)
[2024-09-25] MEDS: LORazepam 0.5 MG TABLET 1.5 MG PO ×3 (08:12→19:43)
[2024-09-25] MEDS: Apixaban 5 MG TABLET PO ×2 (08:12→19:44)
[2024-09-25] MEDS: ARIPiprazole 5 MG TABLET PO (08:12)
[2024-09-25] MEDS: Metoprolol Succinate ER 50 MG TAB.ER.24H PO (08:13)
--- NOTE | 2024-09-25 08:44 | HO.PSYCHPN ---
Subjective Subjective Date of Service: 09/25/24 Reason For Visit: si confusion psychosis Subjective Notes: Conditional Voluntary Interim History: 69 yo WM with poor eye contact, wondering what is going on - withdrawn- wanting to make phone call- difficult to engage coherently- due to confused disorganized and guarded Medication Compliance: Yes Side effects from medications: No Attending Groups: No Review of Systems ? multifactorial confusion- psych and med being worked up Medical Review of Systems: unchanged Mental Status Exam Mental Status Exam Patient Appearance: Well Grooomed and Appropriate Patient Orientation: Person Level of Consciousness: Awake Patient Behavior: Guarded, Suspicious, Resistive to Care, Isolative, Uncooperative and Poor Eye Contact Mood Description: Apprehensive Affect Description: Blunted Ability to Follow Directions: Poor Speech Pattern: Rambling and Poor Articulation Thought Process: Confusion Thought Content: positive for Disorganized Depressive Symptoms: Difficulty Concentrating Judgement: Poor Diagnostics Vital Signs (24Hr): Vital Signs - 24 hr 09/24/24 19:51 09/25/24 08:00 Temperature 97.3 F 97.9 F Pulse Rate 86 91 Respiratory Rate 16 18 Blood Pressure 119/79 115/73 Pulse Oximetry 96 98 Oxygen Delivery Method Room Air Room Air BMI result Body Mass Index 26.0 Labs 09/15/24 07:34 Medications Medications Current Medications Al Hydroxide/Mg Hydroxide (Magnesium Hydrox/Alum Hydrox 30 Ml Oral.Susp) 30 ml PO Q6H PRN PRN Reason: Heartburn/Nausea Apixaban (Apixaban 5 Mg Tablet) 5 mg PO BID [facility] Last Admin: 09/25/24 08:12 Dose: 5 mg Aripiprazole (Aripiprazole 5 Mg Tablet) 5 mg PO DAILY [facility] Last Admin: 09/25/24 08:12 Dose: 5 mg Atorvastatin Calcium (Atorvastatin Calcium 40 Mg Tablet) 40 mg PO BEDTIME [facility] Last Admin: 09/24/24 19:59 Dose: 40 mg Cyanocobalamin (Cyanocobalamin (Vitamin B-12) 1,000 Mcg/Ml Vial) 1,000 mcg IM Q30D [facility] Last Admin: 09/17/24 12:29 Dose: 1,000 mcg Docusate Sodium (Docusate Sodium 100 Mg Capsule) 100 mg PO BID [facility] Last Admin: 09/25/24 08:12 Dose: 100 mg Hydroxyzine HCl (Hydroxyzine Hcl 25 Mg Tablet) 25 mg PO Q6H PRN PRN Reason: mild anxiety Last Admin: 09/20/24 22:19 Dose: 25 mg Levetiracetam (Levetiracetam 250 Mg Tablet) 750 mg PO BID [facility] Last Admin: 09/25/24 08:12 Dose: 750 mg Lidocaine (Lidocaine 4 % Patch Adh..Patch) 1 patch TRANSDERMA DAILY [facility] Last Admin: 09/25/24 08:10 Dose: 1 patch Lorazepam (Lorazepam 0.5 Mg Tablet) 1.5 mg PO TID [facility] Last Admin: 09/25/24 08:12 Dose: 1.5 mg Magnesium Hydroxide (Milk Of Magnesia 30 Ml Oral.Susp) 30 ml PO DAILY PRN PRN Reason: Constipation Memantine (Memantine Hcl 5 Mg Tablet) 5 mg PO DAILY [facility] Last Admin: 09/25/24 08:12 Dose: 5 mg Methocarbamol (Methocarbamol 500 Mg Tablet) 1,000 mg PO TID PRN PRN Reason: Muscle Spasm Metoprolol Succinate (Metoprolol Succinate Er 50 Mg Tab.Er.24h) 50 mg PO DAILY [facility]; Protocol Last Admin: 09/25/24 08:13 Dose: 50 mg Mirtazapine (Mirtazapine 30 Mg Tablet) 30 mg PO BEDTIME [facility] Last Admin: 09/24/24 19:59 Dose: 30 mg Polyethylene Glycol (Polyethylene Glycol 3350 17 Gm Powd.Pack) 17 gm PO DAILY PRN PRN Reason: Constipation Trazodone HCl (Trazodone Hcl 50 Mg Tablet) 50 mg PO BEDTIME MRX1 PRN PRN Reason: Insomnia Last Admin: 09/20/24 22:19 Dose: 50 mg Allergies Allergies Allergy/AdvReac Type Severity Reaction Status Date / Time acetaminophen Allergy Nausea Verified 09/14/24 18:37 hydrocodone [From Vicodin] Allergy Nausea and Verified 09/14/24 18:37 Vomiting lisinopril Allergy Cough Verified 09/14/24 18:37 Assessment & Plan Assessment & Plan (1) Major depression with psychotic features: Status: Acute Code(s): F32.3 - Major depressive disorder, single episode, severe with psychotic features (2) CVA (cerebral vascular accident): Status: Acute Code(s): I63.9 - Cerebral infarction, unspecified (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: Status: Acute Code(s): G40.209 - Localization-related (focal) (partial) symptomatic epilepsy and epileptic syndromes with complex partial seizures, not intractable, without status epilepticus (4) Chronic a-fib: Status: Acute Code(s): I48.20 - Chronic atrial fibrillation, unspecified (5) B12 deficiency: Status: Acute Code(s): E53.8 - Deficiency of other specified B group vitamins Plan Patient is a 68-year-old male with a reported history of atrial fibrillation nonconvulsive single origin seizures severe B12 deficiency some diffuse brain atrophy white matter lesions and cerebellar infarct how presenting with depressive symptoms recent thoughts of suicide and psychotic symptoms. Healthcare proxy invoked patient does not at this time. Able to taken information we then information and make judgments. Wellbutrin recently discontinued would continue Risperdal and mirtazapine. Will trying get Neurology involved MRI and EEG reviewed continue B12 for placement unclear if primary psychiatric disorder versus secondary to neurodegenerative condition perhaps worsened by B12 deficiency continue Keppra continue Eliquis monitor patient's safety09/1809/18/24 neuro consult lorazepam for catatonia 09/21/24 eeg ordered mirtazapine hs risperadol 09/22/24 eeg unl lower keppra start abilify recent catatonia psychotically distressed 09/24 anxious distress, recent catatonia, mood lability. increase ativan from 1 TID to 1.5 TID for now. otherwise continue current mgmt. EEG WNL. awaiting brain MRI from OSH for review. 09/25 [address] to bed doing abit better on ativan, limited antipsychotic use due to hx sz-still quite confused- CTP Informed Consent: does not understand Reason for continued inpatient stay Substantial Risk for: inability to function, rapid decompensation and med/psych decompensation Time Spent With Patient Time: Total time managing care of this patient today ____ minutes.
[2024-09-25 19:41] VITALS: BP 113/76; PULSE 80; RESP 18; TEMP 36.4; O2SAT 96
[2024-09-25] MEDS: Mirtazapine 30 MG TABLET PO (19:45)
[2024-09-25] MEDS: Atorvastatin Calcium 40 MG TABLET PO (19:45)
[2024-09-26 08:00] VITALS: BP 120/84; PULSE 90; RESP 20; TEMP 36.8; O2SAT 99
[2024-09-26] MEDS: levETIRAcetam 250 MG TABLET 750 MG PO ×2 (08:20→21:37)
[2024-09-26 08:21] VITALS: BP 120/84; PULSE 90
[2024-09-26] MEDS: ARIPiprazole 5 MG TABLET PO (08:21)
[2024-09-26] MEDS: Memantine HCl 5 MG TABLET PO (08:21)
[2024-09-26] MEDS: Metoprolol Succinate ER 50 MG TAB.ER.24H PO (08:21)
[2024-09-26] MEDS: Apixaban 5 MG TABLET PO ×2 (08:21→21:37)
[2024-09-26] MEDS: Docusate Sodium 100 MG CAPSULE PO ×2 (08:22→21:37)
[2024-09-26] MEDS: LORazepam 0.5 MG TABLET 1.5 MG PO ×3 (08:23→21:37)
--- NOTE | 2024-09-26 09:43 | P.PNPSI_ITS ---
Subjective Subjective Date of Service: 09/26/24 Reason For Visit: si confusion psychosis Subjective Notes: Conditional Voluntary Medical Problems Affecting Mental Status: No Interim History: 69 yo reports feeling better, annoyed to be interrupted while watching jewish- seems calmer and less upset about confusion- Medication Compliance: Yes Side effects from medications: No Attending Groups: Yes Review of Systems Acute medical concerns: No Medical Review of Systems: unchanged Mental Status Exam Mental Status Exam Patient Appearance: Well Grooomed and Appropriate Patient Orientation: Person and Place Level of Consciousness: Awake Patient Behavior: Guarded, Cooperative and Poor Eye Contact Mood Description: Apathetic Affect Description: Constricted Patient Cognition Impaired: Yes Ability to Follow Directions: Fair Speech Pattern: Mumbled Thought Content: positive for [place] Judgement: Poor Diagnostics Vital Signs (24Hr): Vital Signs - 24 hr 09/25/24 19:41 09/26/24 08:00 09/26/24 08:21 Temperature 97.5 F 98.2 F Pulse Rate 80 90 90 Respiratory Rate 18 20 Blood Pressure 113/76 120/84 120/84 Pulse Oximetry 96 99 Oxygen Delivery Method Room Air Room Air BMI result Body Mass Index 26.0 Labs 09/15/24 07:34 Medications Medications Current Medications Al Hydroxide/Mg Hydroxide (Magnesium Hydrox/Alum Hydrox 30 Ml Oral.Susp) 30 ml PO Q6H PRN PRN Reason: Heartburn/Nausea Apixaban (Apixaban 5 Mg Tablet) 5 mg PO BID [facility] Last Admin: 09/26/24 08:21 Dose: 5 mg Aripiprazole (Aripiprazole 5 Mg Tablet) 5 mg PO DAILY [facility] Last Admin: 09/26/24 08:21 Dose: 5 mg Atorvastatin Calcium (Atorvastatin Calcium 40 Mg Tablet) 40 mg PO BEDTIME [facility] Last Admin: 09/25/24 19:45 Dose: 40 mg Cyanocobalamin (Cyanocobalamin (Vitamin B-12) 1,000 Mcg/Ml Vial) 1,000 mcg IM Q30D [facility] Last Admin: 09/17/24 12:29 Dose: 1,000 mcg Docusate Sodium (Docusate Sodium 100 Mg Capsule) 100 mg PO BID [facility] Last Admin: 09/26/24 08:22 Dose: 100 mg Hydroxyzine HCl (Hydroxyzine Hcl 25 Mg Tablet) 25 mg PO Q6H PRN PRN Reason: mild anxiety Last Admin: 09/20/24 22:19 Dose: 25 mg Levetiracetam (Levetiracetam 250 Mg Tablet) 750 mg PO BID [facility] Last Admin: 09/26/24 08:20 Dose: 750 mg Lidocaine (Lidocaine 4 % Patch Adh..Patch) 1 patch TRANSDERMA DAILY [facility] Last Admin: 09/26/24 08:24 Dose: Not Given Lorazepam (Lorazepam 0.5 Mg Tablet) 1.5 mg PO TID [facility] Last Admin: 09/26/24 08:23 Dose: 1.5 mg Magnesium Hydroxide (Milk Of Magnesia 30 Ml Oral.Susp) 30 ml PO DAILY PRN PRN Reason: Constipation Memantine (Memantine Hcl 5 Mg Tablet) 5 mg PO DAILY [facility] Last Admin: 09/26/24 08:21 Dose: 5 mg Methocarbamol (Methocarbamol 500 Mg Tablet) 1,000 mg PO TID PRN PRN Reason: Muscle Spasm Metoprolol Succinate (Metoprolol Succinate Er 50 Mg Tab.Er.24h) 50 mg PO DAILY [facility]; Protocol Last Admin: 09/26/24 08:21 Dose: 50 mg Mirtazapine (Mirtazapine 30 Mg Tablet) 30 mg PO BEDTIME [facility] Last Admin: 09/25/24 19:45 Dose: 30 mg Polyethylene Glycol (Polyethylene Glycol 3350 17 Gm Powd.Pack) 17 gm PO DAILY PRN PRN Reason: Constipation Trazodone HCl (Trazodone Hcl 50 Mg Tablet) 50 mg PO BEDTIME MRX1 PRN PRN Reason: Insomnia Last Admin: 09/20/24 22:19 Dose: 50 mg Allergies Allergies Allergy/AdvReac Type Severity Reaction Status Date / Time acetaminophen Allergy Nausea Verified 09/14/24 18:37 hydrocodone [From Vicodin] Allergy Nausea and Verified 09/14/24 18:37 Vomiting lisinopril Allergy Cough Verified 09/14/24 18:37 Assessment & Plan Assessment & Plan (1) Major depression with psychotic features: Status: Acute Code(s): F32.3 - Major depressive disorder, single episode, severe with psychotic features (2) CVA (cerebral vascular accident): Status: Acute Code(s): I63.9 - Cerebral infarction, unspecified (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: Status: Acute Code(s): G40.209 - Localization-related (focal) (partial) symptomatic epilepsy and epileptic syndromes with complex partial seizures, not intractable, without status epilepticus (4) Chronic a-fib: Status: Acute Code(s): I48.20 - Chronic atrial fibrillation, unspecified (5) B12 deficiency: Status: Acute Code(s): E53.8 - Deficiency of other specified B group vitamins Plan Patient is a 68-year-old male with a reported history of atrial fibrillation nonconvulsive single origin seizures severe B12 deficiency some diffuse brain atrophy white matter lesions and cerebellar infarct how presenting with depressive symptoms recent thoughts of suicide and psychotic symptoms. Healthcare proxy invoked patient does not at this time. Able to taken information we then information and make judgments. Wellbutrin recently discontinued would continue Risperdal and mirtazapine. Will trying get Neurology involved MRI and EEG reviewed continue B12 for placement unclear if primary psychiatric disorder versus secondary to neurodegenerative condition perhaps worsened by B12 deficiency continue Keppra continue Eliquis monitor patient's safety09/1809/18/24 neuro consult lorazepam for catatonia 09/21/24 eeg ordered mirtazapine hs risperadol 09/22/24 eeg unl lower keppra start abilify recent catatonia psychotically distressed 09/24 anxious distress, recent catatonia, mood lability. increase ativan from 1 TID to 1.5 TID for now. otherwise continue current mgmt. EEG WNL. awaiting brain MRI from OSH for review. 09/25 [address] bed doing abit better on ativan, limited antipsychotic use due to hx sz-still quite confused- CTP 09/26- improved affect, somewhat limited engagement- CTP Reason for continued inpatient stay Substantial Risk for: inability to function and rapid decompensation Time Spent With Patient Time: Total time managing care of this patient today ____ minutes.
[2024-09-26 20:00] VITALS: BP 130/84; PULSE 81; RESP 16; TEMP 36.4; O2SAT 98
[2024-09-26] MEDS: Mirtazapine 30 MG TABLET PO (21:37)
[2024-09-26] MEDS: Atorvastatin Calcium 40 MG TABLET PO (21:37)
[2024-09-27 08:18] VITALS: BP 114/75; PULSE 100; RESP 16; TEMP 36.7; O2SAT 99
[2024-09-27] MEDS: levETIRAcetam 250 MG TABLET 750 MG PO ×2 (08:19→21:31)
[2024-09-27] MEDS: LORazepam 0.5 MG TABLET 1.5 MG PO ×3 (08:19→21:31)
[2024-09-27] MEDS: Apixaban 5 MG TABLET PO ×2 (08:19→21:32)
[2024-09-27] MEDS: Memantine HCl 5 MG TABLET PO (08:19)
[2024-09-27] MEDS: Docusate Sodium 100 MG CAPSULE PO ×2 (08:19→21:32)
[2024-09-27 11:06] VITALS: BP 138/78; PULSE 87
[2024-09-27] MEDS: ARIPiprazole 5 MG TABLET PO (11:06)
[2024-09-27] MEDS: Metoprolol Succinate ER 50 MG TAB.ER.24H PO (11:06)
--- NOTE | 2024-09-27 13:38 | HO.PSYCHPN ---
Subjective Subjective Date of Service: 09/27/24 Reason For Visit: si confusion psychosis Interim History: seated in milieu awaiting lunch. calm, flat. expressing concern for his level of confusion. MD attempted reassurance. asking about calling his , MD encouraged him to call after meal and ask staff for help PRN. no other complaints or requests. per staff, confused as to why he is here, made comment that medications are not what rn said they are. Slept 8hrs. Mental Status Exam Mental Status Exam Narrative: Patient casually dressed psychomotor retarded. Patient knows he is in a hospital. Patient depressed ruminating of perceived deficits. cooperative. nml rate, incr amount of speech. constricted, non-labile. no SI/HI/AVH expressed. Diagnostics Vital Signs (24Hr): Vital Signs - 24 hr 09/26/24 20:00 09/27/24 08:18 09/27/24 11:06 Temperature 97.5 F 98.1 F Pulse Rate 81 100 87 Respiratory Rate 16 16 Blood Pressure 130/84 114/75 138/78 Pulse Oximetry 98 99 Oxygen Delivery Method Room Air Room Air BMI result Body Mass Index 26.0 Labs 09/15/24 07:34 Medications Medications Current Medications Al Hydroxide/Mg Hydroxide (Magnesium Hydrox/Alum Hydrox 30 Ml Oral.Susp) 30 ml PO Q6H PRN PRN Reason: Heartburn/Nausea Apixaban (Apixaban 5 Mg Tablet) 5 mg PO BID [facility] Last Admin: 09/27/24 08:19 Dose: 5 mg Aripiprazole (Aripiprazole 5 Mg Tablet) 5 mg PO DAILY [facility] Last Admin: 09/27/24 11:06 Dose: 5 mg Atorvastatin Calcium (Atorvastatin Calcium 40 Mg Tablet) 40 mg PO BEDTIME [facility] Last Admin: 09/26/24 21:37 Dose: 40 mg Cyanocobalamin (Cyanocobalamin (Vitamin B-12) 1,000 Mcg/Ml Vial) 1,000 mcg IM Q30D [facility] Last Admin: 09/17/24 12:29 Dose: 1,000 mcg Docusate Sodium (Docusate Sodium 100 Mg Capsule) 100 mg PO BID [facility] Last Admin: 09/27/24 08:19 Dose: 100 mg Hydroxyzine HCl (Hydroxyzine Hcl 25 Mg Tablet) 25 mg PO Q6H PRN PRN Reason: mild anxiety Last Admin: 09/20/24 22:19 Dose: 25 mg Levetiracetam (Levetiracetam 250 Mg Tablet) 750 mg PO BID [facility] Last Admin: 09/27/24 08:19 Dose: 750 mg Lidocaine (Lidocaine 4 % Patch Adh..Patch) 1 patch TRANSDERMA DAILY [facility] Last Admin: 09/27/24 08:19 Dose: Not Given Lorazepam (Lorazepam 0.5 Mg Tablet) 1.5 mg PO TID [facility] Last Admin: 09/27/24 08:19 Dose: 1.5 mg Magnesium Hydroxide (Milk Of Magnesia 30 Ml Oral.Susp) 30 ml PO DAILY PRN PRN Reason: Constipation Memantine (Memantine Hcl 5 Mg Tablet) 5 mg PO DAILY [facility] Last Admin: 09/27/24 08:19 Dose: 5 mg Methocarbamol (Methocarbamol 500 Mg Tablet) 1,000 mg PO TID PRN PRN Reason: Muscle Spasm Metoprolol Succinate (Metoprolol Succinate Er 50 Mg Tab.Er.24h) 50 mg PO DAILY [facility]; Protocol Last Admin: 09/27/24 11:06 Dose: 50 mg Mirtazapine (Mirtazapine 30 Mg Tablet) 30 mg PO BEDTIME [facility] Last Admin: 09/26/24 21:37 Dose: 30 mg Polyethylene Glycol (Polyethylene Glycol 3350 17 Gm Powd.Pack) 17 gm PO DAILY PRN PRN Reason: Constipation Trazodone HCl (Trazodone Hcl 50 Mg Tablet) 50 mg PO BEDTIME MRX1 PRN PRN Reason: Insomnia Last Admin: 09/20/24 22:19 Dose: 50 mg Allergies Allergies Allergy/AdvReac Type Severity Reaction Status Date / Time acetaminophen Allergy Nausea Verified 09/14/24 18:37 hydrocodone [From Vicodin] Allergy Nausea and Verified 09/14/24 18:37 Vomiting lisinopril Allergy Cough Verified 09/14/24 18:37 Assessment & Plan Assessment & Plan (1) Major depression with psychotic features: Status: Acute Code(s): F32.3 - Major depressive disorder, single episode, severe with psychotic features (2) CVA (cerebral vascular accident): Status: Acute Code(s): I63.9 - Cerebral infarction, unspecified (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: Status: Acute Code(s): G40.209 - Localization-related (focal) (partial) symptomatic epilepsy and epileptic syndromes with complex partial seizures, not intractable, without status epilepticus (4) Chronic a-fib: Status: Acute Code(s): I48.20 - Chronic atrial fibrillation, unspecified (5) B12 deficiency: Status: Acute Code(s): E53.8 - Deficiency of other specified B group vitamins Plan Patient is a 68-year-old male with a reported history of atrial fibrillation nonconvulsive single origin seizures severe B12 deficiency some diffuse brain atrophy white matter lesions and cerebellar infarct how presenting with depressive symptoms recent thoughts of suicide and psychotic symptoms. Healthcare proxy invoked patient does not at this time. Able to taken information we then information and make judgments. Wellbutrin recently discontinued would continue Risperdal and mirtazapine. Will trying get Neurology involved MRI and EEG reviewed continue B12 for placement unclear if primary psychiatric disorder versus secondary to neurodegenerative condition perhaps worsened by B12 deficiency continue Keppra continue Eliquis monitor patient's safety09/1809/18/24 neuro consult lorazepam for catatonia 09/21/24 eeg ordered mirtazapine hs risperadol 09/22/24 eeg unl lower keppra start abilify recent catatonia psychotically distressed 09/24 anxious distress, recent catatonia, mood lability. increase ativan from 1 TID to 1.5 TID for now. otherwise continue current mgmt. EEG WNL. awaiting brain MRI from OSH for review. 09/25 [address] to bed doing abit better on ativan, limited antipsychotic use due to hx sz-still quite confused- CTP 09/26- improved affect, somewhat limited engagement- CTP 09/27: affect less labile, pt remains anxious and confused. aware of his confusion, asking appropriate questions about it. continue current mgmt for now. Reason for continued inpatient stay Substantial Risk for: inability to function Time Spent With Patient Time: Total time managing care of this patient today ____ minutes.
[2024-09-27 20:00] VITALS: BP 108/62; PULSE 89; RESP 16; TEMP 36.6; O2SAT 99
[2024-09-27] MEDS: Atorvastatin Calcium 40 MG TABLET PO (21:32)
[2024-09-27] MEDS: Mirtazapine 30 MG TABLET PO (21:32)
[2024-09-28 07:55] VITALS: BP 122/82; PULSE 92; RESP 18; TEMP 36.6; O2SAT 92
[2024-09-28] MEDS: Docusate Sodium 100 MG CAPSULE PO ×2 (08:29→20:30)
[2024-09-28] MEDS: LORazepam 0.5 MG TABLET 1.5 MG PO ×3 (08:29→20:29)
[2024-09-28] MEDS: levETIRAcetam 250 MG TABLET 750 MG PO ×2 (08:29→20:30)
[2024-09-28] MEDS: Metoprolol Succinate ER 50 MG TAB.ER.24H PO (08:29)
[2024-09-28] MEDS: Memantine HCl 5 MG TABLET PO (08:29)
[2024-09-28] MEDS: Apixaban 5 MG TABLET PO ×2 (08:30→20:30)
[2024-09-28] MEDS: ARIPiprazole 5 MG TABLET PO (08:30)
[2024-09-28 20:00] VITALS: BP 122/81; PULSE 87; RESP 18; TEMP 36.3; O2SAT 97
[2024-09-28] MEDS: Atorvastatin Calcium 40 MG TABLET PO (20:30)
[2024-09-28] MEDS: Mirtazapine 30 MG TABLET PO (20:30)
--- NOTE | 2024-09-28 23:16 | HO.PSYCHPN ---
Subjective Subjective Date of Service: 09/28/24 Reason For Visit: si confusion psychosis Subjective Notes: Conditional Voluntary Healthcare Proxy: Yes Interim History: The patient is flat much of the time with some periods of brightening and meadows affect. This seems severity throughout the day more alert in somewhat more engaged at times appears to have working attention but things seem not at times to be going into short-term memory Medication Compliance: Yes Mental Status Exam Mental Status Exam Narrative: Patient casually dressed psychomotor retarded. Patient knows he is in a hospital. Patient depressed ruminating of perceived deficits. cooperative. nml rate, incr amount of speech. constricted, non-labile. no SI/HI/AVH expressed. Less preoccupied with delusional material regarding being a sexual predator. Does not seem to remember prior hospitalization . Intermittent brightening Diagnostics Vital Signs (24Hr): Vital Signs - 24 hr 09/28/24 07:55 09/28/24 20:00 Temperature 97.9 F 97.4 F Pulse Rate 92 87 Respiratory Rate 18 18 Blood Pressure 122/82 122/81 Pulse Oximetry 92 97 Oxygen Delivery Method Room Air Room Air BMI result Body Mass Index 26.0 Labs 09/15/24 07:34 Medications Medications Current Medications Al Hydroxide/Mg Hydroxide (Magnesium Hydrox/Alum Hydrox 30 Ml Oral.Susp) 30 ml PO Q6H PRN PRN Reason: Heartburn/Nausea Apixaban (Apixaban 5 Mg Tablet) 5 mg PO BID [facility] Last Admin: 09/28/24 20:30 Dose: 5 mg Aripiprazole (Aripiprazole 5 Mg Tablet) 5 mg PO DAILY [facility] Last Admin: 09/28/24 08:30 Dose: 5 mg Atorvastatin Calcium (Atorvastatin Calcium 40 Mg Tablet) 40 mg PO BEDTIME [facility] Last Admin: 09/28/24 20:30 Dose: 40 mg Cyanocobalamin (Cyanocobalamin (Vitamin B-12) 1,000 Mcg/Ml Vial) 1,000 mcg IM Q30D [facility] Last Admin: 09/17/24 12:29 Dose: 1,000 mcg Docusate Sodium (Docusate Sodium 100 Mg Capsule) 100 mg PO BID [facility] Last Admin: 09/28/24 20:30 Dose: 100 mg Hydroxyzine HCl (Hydroxyzine Hcl 25 Mg Tablet) 25 mg PO Q6H PRN PRN Reason: mild anxiety Last Admin: 09/20/24 22:19 Dose: 25 mg Levetiracetam (Levetiracetam 250 Mg Tablet) 750 mg PO BID [facility] Last Admin: 09/28/24 20:30 Dose: 750 mg Lidocaine (Lidocaine 4 % Patch Adh..Patch) 1 patch TRANSDERMA DAILY [facility] Last Admin: 09/28/24 08:30 Dose: Not Given Lorazepam (Lorazepam 0.5 Mg Tablet) 1.5 mg PO TID [facility] Last Admin: 09/28/24 20:29 Dose: 1.5 mg Magnesium Hydroxide (Milk Of Magnesia 30 Ml Oral.Susp) 30 ml PO DAILY PRN PRN Reason: Constipation Memantine (Memantine Hcl 5 Mg Tablet) 5 mg PO DAILY [facility] Last Admin: 09/28/24 08:29 Dose: 5 mg Methocarbamol (Methocarbamol 500 Mg Tablet) 1,000 mg PO TID PRN PRN Reason: Muscle Spasm Metoprolol Succinate (Metoprolol Succinate Er 50 Mg Tab.Er.24h) 50 mg PO DAILY [facility]; Protocol Last Admin: 09/28/24 08:29 Dose: 50 mg Mirtazapine (Mirtazapine 30 Mg Tablet) 30 mg PO BEDTIME [facility] Last Admin: 09/28/24 20:30 Dose: 30 mg Polyethylene Glycol (Polyethylene Glycol 3350 17 Gm Powd.Pack) 17 gm PO DAILY PRN PRN Reason: Constipation Trazodone HCl (Trazodone Hcl 50 Mg Tablet) 50 mg PO BEDTIME MRX1 PRN PRN Reason: Insomnia Last Admin: 09/20/24 22:19 Dose: 50 mg Allergies Allergies Allergy/AdvReac Type Severity Reaction Status Date / Time acetaminophen Allergy Nausea Verified 09/14/24 18:37 hydrocodone [From Vicodin] Allergy Nausea and Verified 09/14/24 18:37 Vomiting lisinopril Allergy Cough Verified 09/14/24 18:37 Assessment & Plan Assessment & Plan (1) Major depression with psychotic features: Status: Acute Code(s): F32.3 - Major depressive disorder, single episode, severe with psychotic features (2) CVA (cerebral vascular accident): Status: Acute Code(s): I63.9 - Cerebral infarction, unspecified (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: Status: Acute Code(s): G40.209 - Localization-related (focal) (partial) symptomatic epilepsy and epileptic syndromes with complex partial seizures, not intractable, without status epilepticus (4) Chronic a-fib: Status: Acute Code(s): I48.20 - Chronic atrial fibrillation, unspecified (5) B12 deficiency: Status: Acute Code(s): E53.8 - Deficiency of other specified B group vitamins Plan Patient is a 68-year-old male with a reported history of atrial fibrillation nonconvulsive single origin seizures severe B12 deficiency some diffuse brain atrophy white matter lesions and cerebellar infarct how presenting with depressive symptoms recent thoughts of suicide and psychotic symptoms. Healthcare proxy invoked patient does not at this time. Able to taken information we then information and make judgments. Wellbutrin recently discontinued would continue Risperdal and mirtazapine. Will trying get Neurology involved MRI and EEG reviewed continue B12 for placement unclear if primary psychiatric disorder versus secondary to neurodegenerative condition perhaps worsened by B12 deficiency continue Keppra continue Eliquis monitor patient's safety09/1809/18/24 neuro consult lorazepam for cataradol 09/22/24 eeg unl lower keppra start abilify recent catatonia psychotically distressed 09/24 anxious distress, recent catatonia, mood lability. increase ativan from 1 TID to 1.5 TID for now. otherwise continue current mgmt. EEG WNL. awaiting brain MRI from OSH for review. 09/25 [address] to bed doing abit better on ativan, limited antipsychotic use due to hx sz-still quite confused- CTP 09/26- improved affect, somewhat limited engagement- CTP 09/27: affect less labile, pt remains anxious and confused. aware of his confusion, asking appropriate questions about it. continue current mgmt for now 09/28/2024 Continue Abilify seems to be somewhat helpful lorazepam Namenda 5 mg still has problems with short-term memory. Needs cuing often to function variable attention and engagement throughout the day Patient educated on: diagnosis and medication risk/benefits Informed Consent: further education needed Reason for continued inpatient stay Substantial Risk for: inability to function, rapid decompensation and med/psych decompensation Time Spent With Patient Time: Total time managing care of this patient today ____ minutes.
--- NOTE | 2024-09-29 | EEG_ITS ---
FINDINGS: The waking background activity consists of low voltage, fast frequency seen diffusely intermixed with a low-to-mode voltage, 10 to 12 Hz posterior alpha frequency. Photic stimulation is without activation. Hyperventilation was omitted. No focal, lateralizing, or paroxysmal discharges are seen. IMPRESSION: This awake EEG is within normal limits. MD CUONG Upton/YULISSA / [phone]
[2024-09-29 08:16] VITALS: BP 120/77; PULSE 93; RESP 16; TEMP 36.1; O2SAT 98
[2024-09-29] MEDS: ARIPiprazole 5 MG TABLET PO (08:18)
[2024-09-29] MEDS: levETIRAcetam 250 MG TABLET 750 MG PO ×2 (08:19→21:08)
[2024-09-29] MEDS: Metoprolol Succinate ER 50 MG TAB.ER.24H PO (08:19)
[2024-09-29] MEDS: Apixaban 5 MG TABLET PO ×2 (08:20→21:09)
[2024-09-29] MEDS: Memantine HCl 5 MG TABLET PO ×2 (08:20→21:09)
[2024-09-29] MEDS: Docusate Sodium 100 MG CAPSULE PO ×2 (08:20→21:10)
[2024-09-29] MEDS: LORazepam 0.5 MG TABLET 1.5 MG PO (08:20)
--- NOTE | 2024-09-29 09:30 | HO.PSYCHPN ---
Subjective Subjective Date of Service: 09/29/24 Reason For Visit: si confusion psychosis Subjective Notes: Conditional Voluntary Healthcare Proxy: Yes Interim History: Patient with meadows affect more engaged at times. Knows date and is agreeable he states after discharge for outpatient medication and follow-up. 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 Mood flat dysphoric but somewhat improved not as psychotically preoccupied tolerating Abilify Medication Compliance: Yes Mental Status Exam Mental Status Exam Narrative: Patient casually dressed psychomotor retarded. Patient knows he is in a hospital, knows day date month place [facility]. Patient depressed ruminating out what is happened to him. Able to take in information regarding recent diagnosis of seizure disorder B12 deficiency and how it might have been affecting his brain cooperative. nml rate, incr amount of speech. constricted, non-labile. no SI/HI/AVH expressed. Less preoccupied with delusional material regarding being a sexual predator. Does not seem to remember prior hospitalization . Intermittent brightening at times very engaged in the thought of being with his Diagnostics Vital Signs (24Hr): Vital Signs - 24 hr 09/28/24 20:00 09/29/24 08:16 Temperature 97.4 F 97.0 F Pulse Rate 87 93 Respiratory Rate 18 16 Blood Pressure 122/81 120/77 Pulse Oximetry 97 98 Oxygen Delivery Method Room Air Room Air BMI result Body Mass Index 26.0 Labs 09/15/24 07:34 Medications Medications Current Medications Al Hydroxide/Mg Hydroxide (Magnesium Hydrox/Alum Hydrox 30 Ml Oral.Susp) 30 ml PO Q6H PRN PRN Reason: Heartburn/Nausea Apixaban (Apixaban 5 Mg Tablet) 5 mg PO BID [facility] Last Admin: 09/29/24 08:20 Dose: 5 mg Aripiprazole (Aripiprazole 5 Mg Tablet) 5 mg PO DAILY [facility] Last Admin: 09/29/24 08:18 Dose: 5 mg Atorvastatin Calcium (Atorvastatin Calcium 40 Mg Tablet) 40 mg PO BEDTIME [facility] Last Admin: 09/28/24 20:30 Dose: 40 mg Cyanocobalamin (Cyanocobalamin (Vitamin B-12) 1,000 Mcg/Ml Vial) 1,000 mcg IM Q30D [facility] Last Admin: 09/17/24 12:29 Dose: 1,000 mcg Docusate Sodium (Docusate Sodium 100 Mg Capsule) 100 mg PO BID [facility] Last Admin: 09/29/24 08:20 Dose: 100 mg Hydroxyzine HCl (Hydroxyzine Hcl 25 Mg Tablet) 25 mg PO Q6H PRN PRN Reason: mild anxiety Last Admin: 09/20/24 22:19 Dose: 25 mg Levetiracetam (Levetiracetam 250 Mg Tablet) 750 mg PO BID [facility] Last Admin: 09/29/24 08:19 Dose: 750 mg Lidocaine (Lidocaine 4 % Patch Adh..Patch) 1 patch TRANSDERMA DAILY [facility] Last Admin: 09/29/24 08:21 Dose: Not Given Lorazepam (Lorazepam 0.5 Mg Tablet) 1.5 mg PO TID [facility] Last Admin: 09/29/24 08:20 Dose: 1.5 mg Magnesium Hydroxide (Milk Of Magnesia 30 Ml Oral.Susp) 30 ml PO DAILY PRN PRN Reason: Constipation Memantine (Memantine Hcl 5 Mg Tablet) 5 mg PO DAILY [facility] Last Admin: 09/29/24 08:20 Dose: 5 mg Methocarbamol (Methocarbamol 500 Mg Tablet) 1,000 mg PO TID PRN PRN Reason: Muscle Spasm Metoprolol Succinate (Metoprolol Succinate Er 50 Mg Tab.Er.24h) 50 mg PO DAILY [facility]; Protocol Last Admin: 09/29/24 08:19 Dose: 50 mg Mirtazapine (Mirtazapine 30 Mg Tablet) 30 mg PO BEDTIME [facility] Last Admin: 09/28/24 20:30 Dose: 30 mg Polyethylene Glycol (Polyethylene Glycol 3350 17 Gm Powd.Pack) 17 gm PO DAILY PRN PRN Reason: Constipation Trazodone HCl (Trazodone Hcl 50 Mg Tablet) 50 mg PO BEDTIME MRX1 PRN PRN Reason: Insomnia Last Admin: 09/20/24 22:19 Dose: 50 mg Allergies Allergies Allergy/AdvReac Type Severity Reaction Status Date / Time acetaminophen Allergy Nausea Verified 09/14/24 18:37 hydrocodone (From Vicodin) Allergy Nausea and Verified 09/14/24 18:37 Vomiting lisinopril Allergy Cough Verified 09/14/24 18:37 Assessment & Plan Assessment & Plan (1) Major depression with psychotic features: Status: Acute Code(s): F32.3 - Major depressive disorder, single episode, severe with psychotic features (2) CVA (cerebral vascular accident): Status: Acute Code(s): I63.9 - Cerebral infarction, unspecified (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: Status: Acute Code(s): G40.209 - Localization-related (focal) (partial) symptomatic epilepsy and epileptic syndromes with complex partial seizures, not intractable, without status epilepticus (4) Chronic a-fib: Status: Acute Code(s): I48.20 - Chronic atrial fibrillation, unspecified (5) B12 deficiency: Status: Acute Code(s): E53.8 - Deficiency of other specified B group vitamins Plan Patient is a 68-year-old male with a reported history of atrial fibrillation nonconvulsive single origin seizures severe B12 deficiency some diffuse brain atrophy white matter lesions and cerebellar infarct how presenting with depressive symptoms recent thoughts of suicide and psychotic symptoms. Healthcare proxy invoked patient does not at this time. Able to taken information we then information and make judgments. Wellbutrin recently discontinued would continue Risperdal and mirtazapine. Will trying get Neurology involved MRI and EEG reviewed continue B12 for placement unclear if primary psychiatric disorder versus secondary to neurodegenerative condition perhaps worsened by B12 deficiency continue Keppra continue Eliquis monitor patient's safety09/1809/18/24 neuro consult lorazepam for catatonia 09/21/24 eeg ordered mirtazapine hs risperadol 09/22/24 eeg unl lower keppra start abilify recent catatonia psychotically distressed 09/24 anxious distress, recent catatonia, mood lability. increase ativan from 1 TID to 1.5 TID for now. otherwise continue current mgmt. EEG WNL. awaiting brain MRI from OSH for review. 09/25 reported to bed doing abit better on ativan, limited antipsychotic use due to hx sz-still quite confused- CTP 09/26- improved affect, somewhat limited engagement- CTP 09/27: affect less labile, pt remains anxious and confused. aware of his confusion, asking appropriate questions about it. continue current mgmt for now. 09/29/2024 Increase Namenda to 5 b.i.d. taper lorazepam prior to discharge as possible decreased to 1 mg p.o. t.i.d. continue Abilify 5 mg daily mirtazapine 30 mg at bedtime. Will recheck EEG. Will need neurological follow-up Informed Consent: further education needed Reason for continued inpatient stay Substantial Risk for: inability to function, rapid decompensation and med/psych decompensation Time Spent With Patient Time: Total time managing care of this patient today _30___ minutes.
[2024-09-29 12:02] VITALS: BMI 26.1
[2024-09-29] MEDS: Cyanocobalamin (Vitamin B-12) 1,000 MCG/ML VIAL 1000 MCG IM (12:03)
[2024-09-29 13:15] LABS: Syphilis Screen Nonreactive (Nonreactive)
[2024-09-29 13:33] LABS: Folate 7.8 ng/mL (> or = 4.0); Vitamin B12 > 2000 pg/mL (200-900)
[2024-09-29] MEDS: LORazepam 1 MG TABLET PO ×2 (14:30→21:10)
[2024-09-29 20:00] VITALS: BP 90/52; PULSE 84; TEMP 36.2; O2SAT 96
[2024-09-29] MEDS: Atorvastatin Calcium 40 MG TABLET PO (21:09)
[2024-09-29] MEDS: Mirtazapine 30 MG TABLET PO (21:09)
[2024-09-29 22:22] VITALS: BP 104/63; PULSE 84; RESP 16; TEMP 36.6; O2SAT 96
[2024-09-30 08:00] VITALS: BP 109/72; PULSE 78; RESP 18; TEMP 36.6; O2SAT 97
[2024-09-30] MEDS: Docusate Sodium 100 MG CAPSULE PO ×2 (08:20→19:47)
[2024-09-30] MEDS: Lidocaine 4 % Patch ADH..PATCH 1 PATCH TRANSDERMA (08:20)
[2024-09-30] MEDS: Metoprolol Succinate ER 50 MG TAB.ER.24H PO (08:20)
[2024-09-30] MEDS: Apixaban 5 MG TABLET PO ×2 (08:20→20:32)
[2024-09-30] MEDS: Memantine HCl 5 MG TABLET PO ×2 (08:20→19:47)
[2024-09-30] MEDS: ARIPiprazole 5 MG TABLET PO (08:20)
[2024-09-30] MEDS: LORazepam 1 MG TABLET PO ×3 (08:20→19:49)
[2024-09-30] MEDS: levETIRAcetam 250 MG TABLET 750 MG PO ×2 (08:20→19:47)
[2024-09-30 13:44] VITALS: BMI 26.0
[2024-09-30 19:45] VITALS: BP 122/81; PULSE 79; RESP 16; TEMP 36.4; O2SAT 97
[2024-09-30] MEDS: Mirtazapine 30 MG TABLET PO (19:47)
[2024-09-30] MEDS: Atorvastatin Calcium 40 MG TABLET PO (19:47)
--- NOTE | 2024-09-30 22:37 | HO.PSYCHPN ---
Subjective Subjective Date of Service: 09/30/24 Reason For Visit: si confusion psychosis Interim History: Patient is somewhat withdrawn fearful of the future difficulty with motivation has a hard time understanding what may be happening to him and dealing with cognitive impairment Mental Status Exam Mental Status Exam Narrative: Patient casually dressed psychomotor retarded. Patient knows he is in a hospital, knows day date month place [facility]. Has difficulty with basic attention Patient depressed ruminating out what is happened to him. Able to take in information regarding recent diagnosis of seizure disorder B12 deficiency and how it might have been affecting his brain cooperative. nml rate, incr amount of speech. constricted, non-labile. no SI/HI/AVH expressed. Less preoccupied with delusional material regarding being a sexual predator. Does not seem to remember prior hospitalization . Intermittent brightening at times very engaged in the thought of being with his Diagnostics Vital Signs (24Hr): Vital Signs - 24 hr 09/30/24 08:00 09/30/24 19:45 Temperature 97.9 F 97.6 F Pulse Rate 78 79 Respiratory Rate 18 16 Blood Pressure 109/72 122/81 Pulse Oximetry 97 97 Oxygen Delivery Method Room Air Room Air BMI result Body Mass Index 26.0 Labs 09/15/24 07:34 Labs: Laboratory Results - last 48 hr 09/29/24 12:28 Vitamin B12 > 2000 H Folate 7.8 T.pallidum Ab (EIA) Nonreactive Medications Medications Current Medications Al Hydroxide/Mg Hydroxide (Magnesium Hydrox/Alum Hydrox 30 Ml Oral.Susp) 30 ml PO Q6H PRN PRN Reason: Heartburn/Nausea Apixaban (Apixaban 5 Mg Tablet) 5 mg PO BID [facility] Last Admin: 09/30/24 20:32 Dose: 5 mg Aripiprazole (Aripiprazole 5 Mg Tablet) 5 mg PO DAILY [facility] Last Admin: 09/30/24 08:20 Dose: 5 mg Atorvastatin Calcium (Atorvastatin Calcium 40 Mg Tablet) 40 mg PO BEDTIME [facility] Last Admin: 09/30/24 19:47 Dose: 40 mg Cyanocobalamin (Cyanocobalamin (Vitamin B-12) 1,000 Mcg/Ml Vial) 1,000 mcg IM Q7D [facility] Last Admin: 09/29/24 12:03 Dose: 1,000 mcg Docusate Sodium (Docusate Sodium 100 Mg Capsule) 100 mg PO BID [facility] Last Admin: 09/30/24 19:47 Dose: 100 mg Hydroxyzine HCl (Hydroxyzine Hcl 25 Mg Tablet) 25 mg PO Q6H PRN PRN Reason: mild anxiety Last Admin: 09/20/24 22:19 Dose: 25 mg Levetiracetam (Levetiracetam 250 Mg Tablet) 750 mg PO BID [facility] Last Admin: 09/30/24 19:47 Dose: 750 mg Lidocaine (Lidocaine 4 % Patch Adh..Patch) 1 patch TRANSDERMA DAILY [facility] Last Admin: 09/30/24 08:20 Dose: 1 patch Lorazepam (Lorazepam 1 Mg Tablet) 1 mg PO TID [facility] Last Admin: 09/30/24 19:49 Dose: 1 mg Magnesium Hydroxide (Milk Of Magnesia 30 Ml Oral.Susp) 30 ml PO DAILY PRN PRN Reason: Constipation Memantine (Memantine Hcl 5 Mg Tablet) 5 mg PO BID [facility] Last Admin: 09/30/24 19:47 Dose: 5 mg Metoprolol Succinate (Metoprolol Succinate Er 50 Mg Tab.Er.24h) 50 mg PO DAILY [facility]; Protocol Last Admin: 09/30/24 08:20 Dose: 50 mg Mirtazapine (Mirtazapine 30 Mg Tablet) 30 mg PO BEDTIME [facility] Last Admin: 09/30/24 19:47 Dose: 30 mg Polyethylene Glycol (Polyethylene Glycol 3350 17 Gm Powd.Pack) 17 gm PO DAILY PRN PRN Reason: Constipation Trazodone HCl (Trazodone Hcl 50 Mg Tablet) 50 mg PO BEDTIME MRX1 PRN PRN Reason: Insomnia Last Admin: 09/20/24 22:19 Dose: 50 mg Allergies Allergies Allergy/AdvReac Type Severity Reaction Status Date / Time acetaminophen Allergy Nausea Verified 09/14/24 18:37 hydrocodone (From Vicodin) Allergy Nausea and Verified 09/14/24 18:37 Vomiting lisinopril Allergy Cough Verified 09/14/24 18:37 Assessment & Plan Assessment & Plan (1) Major depression with psychotic features: Status: Acute Code(s): F32.3 - Major depressive disorder, single episode, severe with psychotic features (2) CVA (cerebral vascular accident): Status: Acute Code(s): I63.9 - Cerebral infarction, unspecified (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: Status: Acute Code(s): G40.209 - Localization-related (focal) (partial) symptomatic epilepsy and epileptic syndromes with complex partial seizures, not intractable, without status epilepticus (4) Chronic a-fib: Status: Acute Code(s): I48.20 - Chronic atrial fibrillation, unspecified (5) B12 deficiency: Status: Acute Code(s): E53.8 - Deficiency of other specified B group vitamins Plan Patient is a 68-year-old male with a reported history of atrial fibrillation nonconvulsive single origin seizures severe B12 deficiency some diffuse brain atrophy white matter lesions and cerebellar infarct how presenting with depressive symptoms recent thoughts of suicide and psychotic symptoms. Healthcare proxy invoked patient does not at this time. Able to taken information we then information and make judgments. Wellbutrin recently discontinued would continue Risperdal and mirtazapine. Will trying get Neurology involved MRI and EEG reviewed continue B12 for placement unclear if primary psychiatric disorder versus secondary to neurodegenerative condition perhaps worsened by B12 deficiency continue Keppra continue Eliquis monitor patient's safety09/1809/18/24 neuro consult lorazepam for catatonia 09/21/24 eeg ordered mirtazapine hs risperadol 09/22/24 eeg unl lower keppra start abilify recent catatonia psychotically distressed 09/24 anxious distress, recent catatonia, mood lability. increase ativan from 1 TID to 1.5 TID for now. otherwise continue current mgmt. EEG WNL. awaiting brain MRI from OSH for review. 09/25 reported to bed doing abit better on ativan, limited antipsychotic use due to hx sz-still quite confused- CTP 09/26- improved affect, somewhat limited engagement- CTP 09/27: affect less labile, pt remains anxious and confused. aware of his confusion, asking appropriate questions about it. continue current mgmt for now. 09/29/2024 Increase Namenda to 5 b.i.d. taper lorazepam prior to discharge as possible decreased to 1 mg p.o. t.i.d. continue Abilify 5 mg daily mirtazapine 30 mg at bedtime. Will recheck EEG. Will need neurological follow-up 09/30/2024 Increase Abilify Namenda increased EEG ordered continue B12 Reason for continued inpatient stay Substantial Risk for: inability to function, rapid decompensation and med/psych decompensation Time Spent With Patient Time: Total time managing care of this patient today ____ minutes.
[2024-10-01 08:00] VITALS: BP 122/66; PULSE 84; RESP 18; TEMP 36.4; O2SAT 97
[2024-10-01] MEDS: levETIRAcetam 250 MG TABLET 750 MG PO ×2 (08:43→21:06)
[2024-10-01] MEDS: Metoprolol Succinate ER 50 MG TAB.ER.24H PO (08:43)
[2024-10-01] MEDS: Docusate Sodium 100 MG CAPSULE PO ×2 (08:43→21:06)
[2024-10-01] MEDS: LORazepam 1 MG TABLET PO ×3 (08:43→21:13)
[2024-10-01] MEDS: ARIPiprazole 5 MG TABLET 7.5 MG PO (08:44)
[2024-10-01] MEDS: Apixaban 5 MG TABLET PO ×2 (08:44→21:06)
[2024-10-01] MEDS: Memantine HCl 5 MG TABLET PO ×2 (08:44→21:06)
--- NOTE | 2024-10-01 14:51 | HO.PSYCHPN ---
Subjective Subjective Date of Service: 10/01/24 Reason For Visit: si confusion psychosis Subjective Notes: Conditional Voluntary Interim History: Patient seen psychiatric follow-up. Patient is future oriented able to take in information that and a condition that depleted Mental Status Exam Mental Status Exam Narrative: Patient casually dressed was alert animated able to ask questions about his condition more reflect remembered how he was on admission denies current delusional guilt mood some flat improving more animated Diagnostics Vital Signs (24Hr): Vital Signs - 24 hr 09/30/24 19:45 10/01/24 08:00 Temperature 97.6 F 97.5 F Pulse Rate 79 84 Respiratory Rate 16 18 Blood Pressure 122/81 122/66 Pulse Oximetry 97 97 Oxygen Delivery Method Room Air Room Air BMI result Body Mass Index 26.0 Labs 09/15/24 07:34 Medications Medications Current Medications Al Hydroxide/Mg Hydroxide (Magnesium Hydrox/Alum Hydrox 30 Ml Oral.Susp) 30 ml PO Q6H PRN PRN Reason: Heartburn/Nausea Apixaban (Apixaban 5 Mg Tablet) 5 mg PO BID [facility] Last Admin: 10/01/24 08:44 Dose: 5 mg Aripiprazole (Aripiprazole 5 Mg Tablet) 7.5 mg PO DAILY [facility] Last Admin: 10/01/24 08:44 Dose: 7.5 mg Atorvastatin Calcium (Atorvastatin Calcium 40 Mg Tablet) 40 mg PO BEDTIME [facility] Last Admin: 09/30/24 19:47 Dose: 40 mg Cyanocobalamin (Cyanocobalamin (Vitamin B-12) 1,000 Mcg/Ml Vial) 1,000 mcg IM Q7D [facility] Last Admin: 09/29/24 12:03 Dose: 1,000 mcg Docusate Sodium (Docusate Sodium 100 Mg Capsule) 100 mg PO BID [facility] Last Admin: 10/01/24 08:43 Dose: 100 mg Hydroxyzine HCl (Hydroxyzine Hcl 25 Mg Tablet) 25 mg PO Q6H PRN PRN Reason: mild anxiety Last Admin: 09/20/24 22:19 Dose: 25 mg Levetiracetam (Levetiracetam 250 Mg Tablet) 750 mg PO BID [facility] Last Admin: 10/01/24 08:43 Dose: 750 mg Lidocaine (Lidocaine 4 % Patch Adh..Patch) 1 patch TRANSDERMA DAILY [facility] Last Admin: 10/01/24 08:48 Dose: Not Given Lorazepam (Lorazepam 1 Mg Tablet) 1 mg PO TID [facility] Last Admin: 10/01/24 08:43 Dose: 1 mg Magnesium Hydroxide (Milk Of Magnesia 30 Ml Oral.Susp) 30 ml PO DAILY PRN PRN Reason: Constipation Memantine (Memantine Hcl 5 Mg Tablet) 5 mg PO BID [facility] Last Admin: 10/01/24 08:44 Dose: 5 mg Metoprolol Succinate (Metoprolol Succinate Er 50 Mg Tab.Er.24h) 50 mg PO DAILY [facility]; Protocol Last Admin: 10/01/24 08:43 Dose: 50 mg Mirtazapine (Mirtazapine 30 Mg Tablet) 30 mg PO BEDTIME [facility] Last Admin: 09/30/24 19:47 Dose: 30 mg Polyethylene Glycol (Polyethylene Glycol 3350 17 Gm Powd.Pack) 17 gm PO DAILY PRN PRN Reason: Constipation Trazodone HCl (Trazodone Hcl 50 Mg Tablet) 50 mg PO BEDTIME MRX1 PRN PRN Reason: Insomnia Last Admin: 09/20/24 22:19 Dose: 50 mg Allergies Allergies Allergy/AdvReac Type Severity Reaction Status Date / Time acetaminophen Allergy Nausea Verified 09/14/24 18:37 hydrocodone (From Vicodin) Allergy Nausea and Verified 09/14/24 18:37 Vomiting lisinopril Allergy Cough Verified 09/14/24 18:37 Assessment & Plan Assessment & Plan (1) Major depression with psychotic features: Status: Acute Code(s): F32.3 - Major depressive disorder, single episode, severe with psychotic features (2) CVA (cerebral vascular accident): Status: Acute Code(s): I63.9 - Cerebral infarction, unspecified (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: Status: Acute Code(s): G40.209 - Localization-related (focal) (partial) symptomatic epilepsy and epileptic syndromes with complex partial seizures, not intractable, without status epilepticus (4) Chronic a-fib: Status: Acute Code(s): I48.20 - Chronic atrial fibrillation, unspecified (5) B12 deficiency: Status: Acute Code(s): E53.8 - Deficiency of other specified B group vitamins Plan Patient is a 68-year-old male with a reported history of atrial fibrillation nonconvulsive single origin seizures severe B12 deficiency some diffuse brain atrophy white matter lesions and cerebellar infarct how presenting with depressive symptoms recent thoughts of suicide and psychotic symptoms. Healthcare proxy invoked patient does not at this time. Able to taken information we then information and make judgments. Wellbutrin recently discontinued would continue Risperdal and mirtazapine. Will trying get Neurology involved MRI and EEG reviewed continue B12 for placement unclear if primary psychiatric disorder versus secondary to neurodegenerative condition perhaps worsened by B12 deficiency continue Keppra continue Eliquis monitor patient's safety09/1809/18/24 neuro consult lorazepam for catatonia 09/21/24 eeg ordered mirtazapine hs risperadol 09/22/24 eeg unl lower keppra start abilify recent catatonia psychotically distressed 09/24 anxious distress, recent catatonia, mood lability. increase ativan from 1 TID to 1.5 TID for now. otherwise continue current mgmt. EEG WNL. awaiting brain MRI from OSH for review. 09/25 reported to bed doing abit better on ativan, limited antipsychotic use due to hx sz-still quite confused- CTP 09/26- improved affect, somewhat limited engagement- CTP 09/27: affect less labile, pt remains anxious and confused. aware of his confusion, asking appropriate questions about it. continue current mgmt for now. 09/29/2024 Increase Namenda to 5 b.i.d. taper lorazepam prior to discharge as possible decreased to 1 mg p.o. t.i.d. continue Abilify 5 mg daily mirtazapine 30 mg at bedtime. Will recheck EEG. Will need neurological follow-up 09/30/2024 Increase Abilify Namenda increased EEG ordered continue B12 10/01/2024 Continue B12 replacement continue increased dose of Abilify we are pending report of EEG Reason for continued inpatient stay Substantial Risk for: inability to function and rapid decompensation Time Spent With Patient Time: Total time managing care of this patient today ____ minutes.
[2024-10-01 20:00] VITALS: BP 126/77; PULSE 87; RESP 18; TEMP 36.6; O2SAT 97
[2024-10-01] MEDS: Atorvastatin Calcium 40 MG TABLET PO (21:06)
[2024-10-01] MEDS: Mirtazapine 30 MG TABLET PO (21:06)
[2024-10-02 08:00] VITALS: BP 142/100; PULSE 92; RESP 16; O2SAT 97
[2024-10-02] MEDS: ARIPiprazole 5 MG TABLET 7.5 MG PO (09:00)
[2024-10-02] MEDS: LORazepam 1 MG TABLET PO ×3 (09:00→20:19)
[2024-10-02] MEDS: Memantine HCl 5 MG TABLET PO ×2 (09:01→20:19)
[2024-10-02] MEDS: Metoprolol Succinate ER 50 MG TAB.ER.24H PO (09:01)
[2024-10-02] MEDS: Docusate Sodium 100 MG CAPSULE PO ×2 (09:01→20:19)
[2024-10-02] MEDS: Apixaban 5 MG TABLET PO ×2 (09:02→20:19)
[2024-10-02] MEDS: levETIRAcetam 250 MG TABLET 750 MG PO ×2 (09:02→20:19)
--- NOTE | 2024-10-02 12:15 | P.PNPSI_ITS ---
Subjective Subjective Date of Service: 10/02/24 Reason For Visit: si confusion psychosis Subjective Notes: Conditional Voluntary Interim History: Patient was seen and discussed in rounds today. Records and plans were reviewed. He has been stable on the unit. Compliant with treatment. No complaints or side effects. Yesterday he was upset over a phone call with his ex- around some business issues. Eating and sleeping adequately. Was enquiring about discharge planning which he will discuss with providers on Friday. No dangerous behaviors. No changes were made today Review of Systems Review of Systems Yes all other systems are reviewed and are negative Mental Status Exam Mental Status Exam Narrative: In today's visit he is alert, pleasant and interactive. Normal speech. Good eye contact. Affect is appropriate and constricted. No acute signs of psychosis. No AVH. No SI. Moves all limbs. No gait abnormalities. Cognitively appears to be grossly intact. Judgment is intact. Diagnostics Vital Signs (24Hr): Vital Signs - 24 hr 10/01/24 20:00 10/02/24 08:00 Temperature 97.9 F Pulse Rate 87 92 Respiratory Rate 18 16 Blood Pressure 126/77 142/100 H Pulse Oximetry 97 97 Oxygen Delivery Method Room Air Room Air BMI result Body Mass Index 26.0 Labs 09/15/24 07:34 Medications Medications Current Medications Al Hydroxide/Mg Hydroxide (Magnesium Hydrox/Alum Hydrox 30 Ml Oral.Susp) 30 ml PO Q6H PRN PRN Reason: Heartburn/Nausea Apixaban (Apixaban 5 Mg Tablet) 5 mg PO BID [facility] Last Admin: 10/02/24 09:02 Dose: 5 mg Aripiprazole (Aripiprazole 5 Mg Tablet) 7.5 mg PO DAILY [facility] Last Admin: 10/02/24 09:00 Dose: 7.5 mg Atorvastatin Calcium (Atorvastatin Calcium 40 Mg Tablet) 40 mg PO BEDTIME [facility] Last Admin: 10/01/24 21:06 Dose: 40 mg Cyanocobalamin (Cyanocobalamin (Vitamin B-12) 1,000 Mcg/Ml Vial) 1,000 mcg IM Q7D [facility] Last Admin: 09/29/24 12:03 Dose: 1,000 mcg Docusate Sodium (Docusate Sodium 100 Mg Capsule) 100 mg PO BID [facility] Last Admin: 10/02/24 09:01 Dose: 100 mg Hydroxyzine HCl (Hydroxyzine Hcl 25 Mg Tablet) 25 mg PO Q6H PRN PRN Reason: mild anxiety Last Admin: 09/20/24 22:19 Dose: 25 mg Levetiracetam (Levetiracetam 250 Mg Tablet) 750 mg PO BID [facility] Last Admin: 10/02/24 09:02 Dose: 750 mg Lidocaine (Lidocaine 4 % Patch Adh..Patch) 1 patch TRANSDERMA DAILY [facility] Last Admin: 10/02/24 09:06 Dose: Not Given Lorazepam (Lorazepam 1 Mg Tablet) 1 mg PO TID [facility] Last Admin: 10/02/24 09:00 Dose: 1 mg Magnesium Hydroxide (Milk Of Magnesia 30 Ml Oral.Susp) 30 ml PO DAILY PRN PRN Reason: Constipation Memantine (Memantine Hcl 5 Mg Tablet) 5 mg PO BID [facility] Last Admin: 10/02/24 09:01 Dose: 5 mg Metoprolol Succinate (Metoprolol Succinate Er 50 Mg Tab.Er.24h) 50 mg PO DAILY [facility]; Protocol Last Admin: 10/02/24 09:01 Dose: 50 mg Mirtazapine (Mirtazapine 30 Mg Tablet) 30 mg PO BEDTIME [facility] Last Admin: 10/01/24 21:06 Dose: 30 mg Polyethylene Glycol (Polyethylene Glycol 3350 17 Gm Powd.Pack) 17 gm PO DAILY PRN PRN Reason: Constipation Trazodone HCl (Trazodone Hcl 50 Mg Tablet) 50 mg PO BEDTIME MRX1 PRN PRN Reason: Insomnia Last Admin: 09/20/24 22:19 Dose: 50 mg Allergies Allergies Allergy/AdvReac Type Severity Reaction Status Date / Time acetaminophen Allergy Nausea Verified 09/14/24 18:37 hydrocodone (From Vicodin) Allergy Nausea and Verified 09/14/24 18:37 Vomiting lisinopril Allergy Cough Verified 09/14/24 18:37 Assessment & Plan Assessment & Plan (1) Major depression with psychotic features: Status: Acute Code(s): F32.3 - Major depressive disorder, single episode, severe with psychotic features (2) CVA (cerebral vascular accident): Status: Acute Code(s): I63.9 - Cerebral infarction, unspecified (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: Status: Acute Code(s): G40.209 - Localization-related (focal) (partial) symptomatic epilepsy and epileptic syndromes with complex partial seizures, not intractable, without status epilepticus (4) Chronic a-fib: Status: Acute Code(s): I48.20 - Chronic atrial fibrillation, unspecified (5) B12 deficiency: Status: Acute Code(s): E53.8 - Deficiency of other specified B group vitamins Plan Patient is a 68-year-old male with a reported history of atrial fibrillation nonconvulsive single origin seizures severe B12 deficiency some diffuse brain atrophy white matter lesions and cerebellar infarct how presenting with depressive symptoms recent thoughts of suicide and psychotic symptoms. Healthcare proxy invoked patient does not at this time. Able to taken information we then information and make judgments. Wellbutrin recently discontinued would continue Risperdal and mirtazapine. Will trying get Neurology involved MRI and EEG reviewed continue B12 for placement unclear if primary psychiatric disorder versus secondary to neurodegenerative condition perhaps worsened by B12 deficiency continue Keppra continue Eliquis monitor patient's safety09/1809/18/24 neuro consult lorazepam for catatonia 09/21/24 eeg ordered mirtazapine hs risperadol 09/22/24 eeg unl lower keppra start abilify recent catatonia psychotically distressed 09/24 anxious distress, recent catatonia, mood lability. increase ativan from 1 TID to 1.5 TID for now. otherwise continue current mgmt. EEG WNL. awaiting brain MRI from OSH for review. 09/25 reported to bed doing abit better on ativan, limited antipsychotic use due to hx sz-still quite confused- CTP 09/26- improved affect, somewhat limited engagement- CTP 09/27: affect less labile, pt remains anxious and confused. aware of his confusion, asking appropriate questions about it. continue current mgmt for now. 09/29/2024 Increase Namenda to 5 b.i.d. taper lorazepam prior to discharge as possible decreased to 1 mg p.o. t.i.d. continue Abilify 5 mg daily mirtazapine 30 mg at bedtime. Will recheck EEG. Will need neurological follow-up 09/30/2024 Increase Abilify Namenda increased EEG ordered continue B12 10/01/2024 Continue B12 replacement continue increased dose of Abilify we are pending report of EEG 10/02: Continue current regimen and plans Reason for continued inpatient stay Substantial Risk for: med/psych decompensation Time Spent With Patient Time: Total time managing care of this patient today ____ minutes.
[2024-10-02 20:00] VITALS: BP 132/75; PULSE 87; RESP 17; TEMP 36.4; O2SAT 98
[2024-10-02] MEDS: Mirtazapine 30 MG TABLET PO (20:20)
[2024-10-02] MEDS: Atorvastatin Calcium 40 MG TABLET PO (20:20)
[2024-10-03 08:00] VITALS: BP 108/66; PULSE 92; RESP 16; O2SAT 98
[2024-10-03] MEDS: LORazepam 1 MG TABLET PO ×3 (08:45→20:19)
[2024-10-03] MEDS: Docusate Sodium 100 MG CAPSULE PO ×2 (08:46→20:19)
[2024-10-03] MEDS: Apixaban 5 MG TABLET PO ×2 (08:46→20:19)
[2024-10-03] MEDS: Memantine HCl 5 MG TABLET PO ×2 (08:46→20:19)
[2024-10-03] MEDS: levETIRAcetam 250 MG TABLET 750 MG PO ×2 (08:47→20:19)
[2024-10-03] MEDS: ARIPiprazole 5 MG TABLET 7.5 MG PO (09:27)
[2024-10-03] MEDS: Metoprolol Succinate ER 50 MG TAB.ER.24H PO (09:32)
--- NOTE | 2024-10-03 11:15 | P.PNPSI_ITS ---
Subjective Subjective Date of Service: 10/03/24 Reason For Visit: si confusion psychosis Subjective Notes: Conditional Voluntary Interim History: Patient was seen and discussed in rounds today. Records and plans were reviewed. He has been stable on the unit. Compliant with treatment. No complaints or side effects. He did shower and found some close to get out of hospital attire. He is happy about that. Eating and sleeping adequately. No behavioral issues. No changes were made today Review of Systems Review of Systems Yes all other systems are reviewed and are negative Mental Status Exam Mental Status Exam Narrative: In today's visit he is alert, pleasant and interactive. Normal speech. Good eye contact. Affect is appropriate and constricted. No acute signs of psychosis. No AVH. No SI. Moves all limbs. No gait abnormalities. Cognitively appears to be grossly intact. Judgment is intact. Diagnostics Vital Signs (24Hr): Vital Signs - 24 hr 10/02/24 20:00 Temperature 97.6 F Pulse Rate 87 Respiratory Rate 17 Blood Pressure 132/75 Pulse Oximetry 98 Oxygen Delivery Method Room Air BMI result Body Mass Index 26.0 Labs 09/15/24 07:34 Medications Medications Current Medications Al Hydroxide/Mg Hydroxide (Magnesium Hydrox/Alum Hydrox 30 Ml Oral.Susp) 30 ml PO Q6H PRN PRN Reason: Heartburn/Nausea Apixaban (Apixaban 5 Mg Tablet) 5 mg PO BID [facility] Last Admin: 10/03/24 08:46 Dose: 5 mg Aripiprazole (Aripiprazole 5 Mg Tablet) 7.5 mg PO DAILY [facility] Last Admin: 10/03/24 09:27 Dose: 7.5 mg Atorvastatin Calcium (Atorvastatin Calcium 40 Mg Tablet) 40 mg PO BEDTIME [facility] Last Admin: 10/02/24 20:20 Dose: 40 mg Cyanocobalamin (Cyanocobalamin (Vitamin B-12) 1,000 Mcg/Ml Vial) 1,000 mcg IM Q7D [facility] Last Admin: 09/29/24 12:03 Dose: 1,000 mcg Docusate Sodium (Docusate Sodium 100 Mg Capsule) 100 mg PO BID [facility] Last Admin: 10/03/24 08:46 Dose: 100 mg Hydroxyzine HCl (Hydroxyzine Hcl 25 Mg Tablet) 25 mg PO Q6H PRN PRN Reason: mild anxiety Last Admin: 09/20/24 22:19 Dose: 25 mg Levetiracetam (Levetiracetam 250 Mg Tablet) 750 mg PO BID [facility] Last Admin: 10/03/24 08:47 Dose: 750 mg Lidocaine (Lidocaine 4 % Patch Adh..Patch) 1 patch TRANSDERMA DAILY [facility] Last Admin: 10/03/24 09:30 Dose: Not Given Lorazepam (Lorazepam 1 Mg Tablet) 1 mg PO TID [facility] Last Admin: 10/03/24 08:45 Dose: 1 mg Magnesium Hydroxide (Milk Of Magnesia 30 Ml Oral.Susp) 30 ml PO DAILY PRN PRN Reason: Constipation Memantine (Memantine Hcl 5 Mg Tablet) 5 mg PO BID [facility] Last Admin: 10/03/24 08:46 Dose: 5 mg Metoprolol Succinate (Metoprolol Succinate Er 50 Mg Tab.Er.24h) 50 mg PO DAILY [facility]; Protocol Last Admin: 10/03/24 09:32 Dose: 50 mg Mirtazapine (Mirtazapine 30 Mg Tablet) 30 mg PO BEDTIME [facility] Last Admin: 10/02/24 20:20 Dose: 30 mg Polyethylene Glycol (Polyethylene Glycol 3350 17 Gm Powd.Pack) 17 gm PO DAILY PRN PRN Reason: Constipation Trazodone HCl (Trazodone Hcl 50 Mg Tablet) 50 mg PO BEDTIME MRX1 PRN PRN Reason: Insomnia Last Admin: 09/20/24 22:19 Dose: 50 mg Allergies Allergies Allergy/AdvReac Type Severity Reaction Status Date / Time acetaminophen Allergy Nausea Verified 09/14/24 18:37 hydrocodone (From Vicodin) Allergy Nausea and Verified 09/14/24 18:37 Vomiting lisinopril Allergy Cough Verified 09/14/24 18:37 Assessment & Plan Assessment & Plan (1) Major depression with psychotic features: Status: Acute Code(s): F32.3 - Major depressive disorder, single episode, severe with psychotic features (2) CVA (cerebral vascular accident): Status: Acute Code(s): I63.9 - Cerebral infarction, unspecified (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: Status: Acute Code(s): G40.209 - Localization-related (focal) (partial) symptomatic epilepsy and epileptic syndromes with complex partial seizures, not intractable, without status epilepticus (4) Chronic a-fib: Status: Acute Code(s): I48.20 - Chronic atrial fibrillation, unspecified (5) B12 deficiency: Status: Acute Code(s): E53.8 - Deficiency of other specified B group vitamins Plan Patient is a 68-year-old male with a reported history of atrial fibrillation nonconvulsive single origin seizures severe B12 deficiency some diffuse brain atrophy white matter lesions and cerebellar infarct how presenting with depressive symptoms recent thoughts of suicide and psychotic symptoms. Healthcare proxy invoked patient does not at this time. Able to taken information we then information and make judgments. Wellbutrin recently discontinued would continue Risperdal and mirtazapine. Will trying get Neurology involved MRI and EEG reviewed continue B12 for placement unclear if primary psychiatric disorder versus secondary to neurodegenerative condition perhaps worsened by B12 deficiency continue Keppra continue Eliquis monitor patient's safety09/1809/18/24 neuro consult lorazepam for catatonia 09/21/24 eeg ordered mirtazapine hs risperadol 09/22/24 eeg unl lower keppra start abilify recent catatonia psychotically distressed 09/24 anxious distress, recent catatonia, mood lability. increase ativan from 1 TID to 1.5 TID for now. otherwise continue current mgmt. EEG WNL. awaiting brain MRI from OSH for review. 09/25 reported to bed doing abit better on ativan, limited antipsychotic use due to hx sz-still quite confused- CTP 09/26- improved affect, somewhat limited engagement- CTP 09/27: affect less labile, pt remains anxious and confused. aware of his confusion, asking appropriate questions about it. continue current mgmt for now. 09/29/2024 Increase Namenda to 5 b.i.d. taper lorazepam prior to discharge as possible decreased to 1 mg p.o. t.i.d. continue Abilify 5 mg daily mirtazapine 30 mg at bedtime. Will recheck EEG. Will need neurological follow-up 09/30/2024 Increase Abilify Namenda increased EEG ordered continue B12 10/01/2024 Continue B12 replacement continue increased dose of Abilify we are pending report of EEG 10/02: Continue current regimen and plans 10/03: Continue current regimen and plans Reason for continued inpatient stay Substantial Risk for: med/psych decompensation Time Spent With Patient Time: Total time managing care of this patient today ____ minutes.
[2024-10-03 19:55] VITALS: BP 102/59; PULSE 77; RESP 18; TEMP 37.4; O2SAT 96
[2024-10-03] MEDS: Mirtazapine 30 MG TABLET PO (20:19)
[2024-10-03] MEDS: Atorvastatin Calcium 40 MG TABLET PO (20:19)
[2024-10-04 08:00] VITALS: BP 125/85; PULSE 92; RESP 16; TEMP 37; O2SAT 97
--- NOTE | 2024-10-04 09:11 | HO.PSYCHPN ---
Subjective Subjective Date of Service: 10/04/24 Reason For Visit: si confusion psychosis Interim History: Patient seen psychiatric follow-up patient's remains somewhat pressed but meadows affect needs much reassurance. In the past he had to file as a level 1 sex offender was due to file September 23. Call placed to Dr. Arshad regarding EEG patient\ Patient less depressed future oriented needs much reassurance Diagnostics Vital Signs (24Hr): Vital Signs - 24 hr 10/03/24 19:55 Temperature 99.3 F Pulse Rate 77 Respiratory Rate 18 Blood Pressure 102/59 L Pulse Oximetry 96 Oxygen Delivery Method Room Air BMI result Body Mass Index 26.0 Labs 09/15/24 07:34 Medications Medications Current Medications Al Hydroxide/Mg Hydroxide (Magnesium Hydrox/Alum Hydrox 30 Ml Oral.Susp) 30 ml PO Q6H PRN PRN Reason: Heartburn/Nausea Apixaban (Apixaban 5 Mg Tablet) 5 mg PO BID [facility] Last Admin: 10/03/24 20:19 Dose: 5 mg Aripiprazole (Aripiprazole 5 Mg Tablet) 7.5 mg PO DAILY [facility] Last Admin: 10/03/24 09:27 Dose: 7.5 mg Atorvastatin Calcium (Atorvastatin Calcium 40 Mg Tablet) 40 mg PO BEDTIME [facility] Last Admin: 10/03/24 20:19 Dose: 40 mg Cyanocobalamin (Cyanocobalamin (Vitamin B-12) 1,000 Mcg/Ml Vial) 1,000 mcg IM Q7D [facility] Last Admin: 09/29/24 12:03 Dose: 1,000 mcg Docusate Sodium (Docusate Sodium 100 Mg Capsule) 100 mg PO BID [facility] Last Admin: 10/03/24 20:19 Dose: 100 mg Hydroxyzine HCl (Hydroxyzine Hcl 25 Mg Tablet) 25 mg PO Q6H PRN PRN Reason: mild anxiety Last Admin: 09/20/24 22:19 Dose: 25 mg Levetiracetam (Levetiracetam 250 Mg Tablet) 750 mg PO BID [facility] Last Admin: 10/03/24 20:19 Dose: 750 mg Lidocaine (Lidocaine 4 % Patch Adh..Patch) 1 patch TRANSDERMA DAILY [facility] Last Admin: 10/03/24 09:30 Dose: Not Given Lorazepam (Lorazepam 1 Mg Tablet) 1 mg PO TID [facility] Last Admin: 10/03/24 20:19 Dose: 1 mg Magnesium Hydroxide (Milk Of Magnesia 30 Ml Oral.Susp) 30 ml PO DAILY PRN PRN Reason: Constipation Memantine (Memantine Hcl 5 Mg Tablet) 5 mg PO BID [facility] Last Admin: 10/03/24 20:19 Dose: 5 mg Metoprolol Succinate (Metoprolol Succinate Er 50 Mg Tab.Er.24h) 50 mg PO DAILY [facility]; Protocol Last Admin: 10/03/24 09:32 Dose: 50 mg Mirtazapine (Mirtazapine 30 Mg Tablet) 30 mg PO BEDTIME [facility] Last Admin: 10/03/24 20:19 Dose: 30 mg Polyethylene Glycol (Polyethylene Glycol 3350 17 Gm Powd.Pack) 17 gm PO DAILY PRN PRN Reason: Constipation Trazodone HCl (Trazodone Hcl 50 Mg Tablet) 50 mg PO BEDTIME MRX1 PRN PRN Reason: Insomnia Last Admin: 09/20/24 22:19 Dose: 50 mg Allergies Allergies Allergy/AdvReac Type Severity Reaction Status Date / Time acetaminophen Allergy Nausea Verified 09/14/24 18:37 hydrocodone (From Vicodin) Allergy Nausea and Verified 09/14/24 18:37 Vomiting lisinopril Allergy Cough Verified 09/14/24 18:37 Assessment & Plan Assessment & Plan (1) Major depression with psychotic features: Status: Acute Code(s): F32.3 - Major depressive disorder, single episode, severe with psychotic features (2) CVA (cerebral vascular accident): Status: Acute Code(s): I63.9 - Cerebral infarction, unspecified (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: Status: Acute Code(s): G40.209 - Localization-related (focal) (partial) symptomatic epilepsy and epileptic syndromes with complex partial seizures, not intractable, without status epilepticus (4) Chronic a-fib: Status: Acute Code(s): I48.20 - Chronic atrial fibrillation, unspecified (5) B12 deficiency: Status: Acute Code(s): E53.8 - Deficiency of other specified B group vitamins Plan Patient is a 68-year-old male with a reported history of atrial fibrillation nonconvulsive single origin seizures severe B12 deficiency some diffuse brain atrophy white matter lesions and cerebellar infarct how presenting with depressive symptoms recent thoughts of suicide and psychotic symptoms. Healthcare proxy invoked patient does not at this time. Able to taken information we then information and make judgments. Wellbutrin recently discontinued would continue Risperdal and mirtazapine. Will trying get Neurology involved MRI and EEG reviewed continue B12 for placement unclear if primary psychiatric disorder versus secondary to neurodegenerative condition perhaps worsened by B12 deficiency continue Keppra continue Eliquis monitor patient's safety09/1809/18/24 neuro consult lorazepam for catatonia 09/21/24 eeg ordered mirtazapine hs risperadol 09/22/24 eeg unl lower keppra start abilify recent catatonia psychotically distressed 09/24 anxious distress, recent catatonia, mood lability. increase ativan from 1 TID to 1.5 TID for now. otherwise continue current mgmt. EEG WNL. awaiting brain MRI from OSH for review. 09/25 reported to bed doing abit better on ativan, limited antipsychotic use due to hx sz-still quite confused- CTP 09/26- improved affect, somewhat limited engagement- CTP 09/27: affect less labile, pt remains anxious and confused. aware of his confusion, asking appropriate questions about it. continue current mgmt for now. 09/29/2024 Increase Namenda to 5 b.i.d. taper lorazepam prior to discharge as possible decreased to 1 mg p.o. t.i.d. continue Abilify 5 mg daily mirtazapine 30 mg at bedtime. Will recheck EEG. Will need neurological follow-up 09/30/2024 Increase Abilify Namenda increased EEG ordered continue B12 10/01/2024 Continue B12 replacement continue increased dose of Abilify we are pending report of EEG 10/02: Continue current regimen and plans 10/03: Continue current regimen and plans 10/04 lower lorazepam to 0.5 tid inc abilify Patient educated on: medication risk/benefits and medical condition Informed Consent: further education needed Reason for continued inpatient stay Substantial Risk for: inability to function, rapid decompensation and med/psych decompensation Time Spent With Patient Time: Total time managing care of this patient today ____ minutes.
[2024-10-04] MEDS: ARIPiprazole 5 MG TABLET 7.5 MG PO (11:20)
[2024-10-04 11:21] VITALS: BP 125/85; PULSE 120
[2024-10-04] MEDS: Metoprolol Succinate ER 50 MG TAB.ER.24H PO (11:21)
[2024-10-04] MEDS: levETIRAcetam 250 MG TABLET 750 MG PO ×2 (11:22→20:01)
[2024-10-04] MEDS: Memantine HCl 5 MG TABLET PO ×2 (11:23→20:02)
[2024-10-04] MEDS: Docusate Sodium 100 MG CAPSULE PO ×2 (11:23→20:02)
[2024-10-04] MEDS: Apixaban 5 MG TABLET PO ×2 (11:23→20:02)
[2024-10-04] MEDS: LORazepam 0.5 MG TABLET PO ×2 (15:21→20:02)
[2024-10-04 20:00] VITALS: BP 131/94; PULSE 85; RESP 18; TEMP 36.6; O2SAT 96
[2024-10-04] MEDS: Mirtazapine 30 MG TABLET PO (20:02)
[2024-10-04] MEDS: Atorvastatin Calcium 40 MG TABLET PO (20:02)
[2024-10-05 08:00] VITALS: RESP 16; TEMP 36.3; O2SAT 98
[2024-10-05] MEDS: ARIPiprazole 5 MG TABLET 7.5 MG PO (09:19)
[2024-10-05] MEDS: levETIRAcetam 250 MG TABLET 750 MG PO (09:19)
[2024-10-05] MEDS: Apixaban 5 MG TABLET PO ×2 (09:20→21:14)
[2024-10-05] MEDS: Memantine HCl 5 MG TABLET PO ×2 (09:20→21:15)
[2024-10-05] MEDS: LORazepam 0.5 MG TABLET PO ×3 (09:21→21:14)
[2024-10-05] MEDS: Docusate Sodium 100 MG CAPSULE PO ×2 (09:21→21:13)
[2024-10-05 09:27] VITALS: BP 114/72; PULSE 90
[2024-10-05] MEDS: Metoprolol Succinate ER 50 MG TAB.ER.24H PO (09:27)
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
[2024-10-05 20:00] VITALS: BP 119/86; PULSE 83; RESP 16; TEMP 36.3; O2SAT 96
[2024-10-05] MEDS: Atorvastatin Calcium 40 MG TABLET PO (21:13)
[2024-10-05] MEDS: levETIRAcetam 250 MG TABLET PO (21:14)
[2024-10-05] MEDS: Mirtazapine 30 MG TABLET PO (21:14)
[2024-10-06 08:00] VITALS: BP 126/83; PULSE 91; RESP 16; TEMP 37; O2SAT 97
[2024-10-06] MEDS: Memantine HCl 5 MG TABLET PO ×2 (08:18→20:56)
[2024-10-06] MEDS: Docusate Sodium 100 MG CAPSULE PO ×2 (08:19→20:56)
[2024-10-06 08:21] VITALS: BP 126/83; PULSE 91
[2024-10-06] MEDS: Metoprolol Succinate ER 50 MG TAB.ER.24H PO (08:21)
[2024-10-06] MEDS: levETIRAcetam 250 MG TABLET PO ×2 (08:21→20:56)
[2024-10-06] MEDS: Apixaban 5 MG TABLET PO ×2 (08:22→20:56)
[2024-10-06] MEDS: LORazepam 0.5 MG TABLET PO ×3 (08:22→20:56)
[2024-10-06] MEDS: ARIPiprazole 5 MG TABLET 7.5 MG PO (08:22)
--- NOTE | 2024-10-06 15:00 | ECG_ITS ---
Test Reason : ON ABILIFY Blood Pressure : */* mmHG Vent. Rate : 86 BPM Atrial Rate : * BPM P-R Int : * ms QRS Dur : 88 ms QT Int : 372 ms P-R-T Axes : * 32 16 degrees QTcB Int : 445 ms Atrial fibrillation Abnormal ECG No previous ECGs available Referred By: Dayne Diaz Electronically Signed By: XIN ROBLES
--- NOTE | 2024-10-06 15:08 | P.PNPSI_ITS ---
Subjective Subjective Date of Service: 10/06/24 Reason For Visit: si confusion psychosis Subjective Notes: Conditional Voluntary Interim History: Patient is cognitively improved more alert asking whether he will be okay when he leaves. Able to take in information but poor short-term memory executive functioning unclear. Case reviewed with healthcare proxy Medication Compliance: Yes Mental Status Exam Mental Status Exam Narrative: In today's visit he is alert, and interactive. Somewhat slowed Good eye contact. Affect is appropriate and constricted. Mood mildly depressed No acute signs of psychosis. Still preoccupied regarding the past and events where he said he had to plead guilty to something he did not do but was eventually exonerated No AVH. No SI. Moves all limbs. No gait abnormalities. Cognitively appears to be grossly intact. Judgment is intact. But has difficulty retaining information Diagnostics Vital Signs (24Hr): Vital Signs - 24 hr 10/05/24 20:00 10/06/24 08:00 10/06/24 08:21 Temperature 97.3 F 98.6 F Pulse Rate 83 91 91 Respiratory Rate 16 16 Blood Pressure 119/86 126/83 126/83 Pulse Oximetry 96 97 Oxygen Delivery Method Room Air Room Air BMI result Body Mass Index 26.0 Labs 10/06/24 15:22 10/06/24 15:20 Medications Medications Current Medications Al Hydroxide/Mg Hydroxide (Magnesium Hydrox/Alum Hydrox 30 Ml Oral.Susp) 30 ml PO Q6H PRN PRN Reason: Heartburn/Nausea Apixaban (Apixaban 5 Mg Tablet) 5 mg PO BID [facility] Last Admin: 10/06/24 08:22 Dose: 5 mg Aripiprazole (Aripiprazole 5 Mg Tablet) 7.5 mg PO DAILY [facility] Last Admin: 10/06/24 08:22 Dose: 7.5 mg Atorvastatin Calcium (Atorvastatin Calcium 40 Mg Tablet) 40 mg PO BEDTIME [facility] Last Admin: 10/05/24 21:13 Dose: 40 mg Cyanocobalamin (Cyanocobalamin (Vitamin B-12) 1,000 Mcg/Ml Vial) 1,000 mcg IM Q7D [facility] Last Admin: 10/06/24 09:29 Dose: Not Given Docusate Sodium (Docusate Sodium 100 Mg Capsule) 100 mg PO BID [facility] Last Admin: 10/06/24 08:19 Dose: 100 mg Hydroxyzine HCl (Hydroxyzine Hcl 25 Mg Tablet) 25 mg PO Q6H PRN PRN Reason: mild anxiety Last Admin: 09/20/24 22:19 Dose: 25 mg Levetiracetam (Levetiracetam 250 Mg Tablet) 250 mg PO BID [facility] Last Admin: 10/06/24 08:21 Dose: 250 mg Lidocaine (Lidocaine 4 % Patch Adh..Patch) 1 patch TRANSDERMA DAILY [facility] Last Admin: 10/06/24 08:24 Dose: Not Given Lorazepam (Lorazepam 0.5 Mg Tablet) 0.5 mg PO TID [facility] Last Admin: 10/06/24 08:22 Dose: 0.5 mg Magnesium Hydroxide (Milk Of Magnesia 30 Ml Oral.Susp) 30 ml PO DAILY PRN PRN Reason: Constipation Memantine (Memantine Hcl 5 Mg Tablet) 5 mg PO BID [facility] Last Admin: 10/06/24 08:18 Dose: 5 mg Metoprolol Succinate (Metoprolol Succinate Er 50 Mg Tab.Er.24h) 50 mg PO DAILY [facility]; Protocol Last Admin: 10/06/24 08:21 Dose: 50 mg Mirtazapine (Mirtazapine 30 Mg Tablet) 30 mg PO BEDTIME [facility] Last Admin: 10/05/24 21:14 Dose: 30 mg Polyethylene Glycol (Polyethylene Glycol 3350 17 Gm Powd.Pack) 17 gm PO DAILY PRN PRN Reason: Constipation Trazodone HCl (Trazodone Hcl 50 Mg Tablet) 50 mg PO BEDTIME MRX1 PRN PRN Reason: Insomnia Last Admin: 09/20/24 22:19 Dose: 50 mg Allergies Allergies Allergy/AdvReac Type Severity Reaction Status Date / Time acetaminophen Allergy Nausea Verified 09/14/24 18:37 hydrocodone (From Vicodin) Allergy Nausea and Verified 09/14/24 18:37 Vomiting lisinopril Allergy Cough Verified 09/14/24 18:37 Assessment & Plan Assessment & Plan (1) Major depression with psychotic features: Status: Acute Code(s): F32.3 - Major depressive disorder, single episode, severe with psychotic features Assessment and Plan: Significant improvement no gross paranoia catatonic symptoms have resolved (2) CVA (cerebral vascular accident): Status: Acute Code(s): I63.9 - Cerebral infarction, unspecified (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: Status: Acute Code(s): G40.209 - Localization-related (focal) (partial) symptomatic epilepsy and epileptic syndromes with complex partial seizures, not intractable, without status epilepticus (4) Chronic a-fib: Status: Acute Code(s): I48.20 - Chronic atrial fibrillation, unspecified Assessment and Plan: Continue Eliquis (5) B12 deficiency: Status: Acute Code(s): E53.8 - Deficiency of other specified B group vitamins Plan Patient is a 68-year-old male with a reported history of atrial fibrillation nonconvulsive single origin seizures severe B12 deficiency some diffuse brain atrophy white matter lesions and cerebellar infarct how presenting with depressive symptoms recent thoughts of suicide and psychotic symptoms. Healthcare proxy invoked patient does not at this time. Able to taken information we then information and make judgments. Wellbutrin recently discontinued would continue Risperdal and mirtazapine. Will trying get Neurology involved MRI and EEG reviewed continue B12 for placement unclear if primary psychiatric disorder versus secondary to neurodegenerative condition perhaps worsened by B12 deficiency continue Keppra continue Eliquis monitor patient's safety09/1809/18/24 neuro consult lorazepam for catatonia 09/21/24 eeg ordered mirtazapine hs risperadol 09/22/24 eeg unl lower keppra start abilify recent catatonia psychotically distressed 09/24 anxious distress, recent catatonia, mood lability. increase ativan from 1 TID to 1.5 TID for now. otherwise continue current mgmt. EEG WNL. awaiting brain MRI from OSH for review. 09/25 reported to bed doing abit better on ativan, limited antipsychotic use due to hx sz-still quite confused- CTP 09/26- improved affect, somewhat limited engagement- CTP 09/27: affect less labile, pt remains anxious and confused. aware of his confusion, asking appropriate questions about it. continue current mgmt for now. 09/29/2024 Increase Namenda to 5 b.i.d. taper lorazepam prior to discharge as possible decreased to 1 mg p.o. t.i.d. continue Abilify 5 mg daily mirtazapine 30 mg at bedtime. Will recheck EEG. Will need neurological follow-up 09/30/2024 Increase Abilify Namenda increased EEG ordered continue B12 10/01/2024 Continue B12 replacement continue increased dose of Abilify we are pending report of EEG 10/02: Continue current regimen and plans 10/03: Continue current regimen and plans 10/04 lower lorazepam to 0.5 tid inc abilify 10/05/2024 Try and coordinate with PCP patient will benefit from neurology follow-up in neuropsych evaluation. He is functioning generally independently here his short-term memory is significantly impaired question secondary to severe B12 deficiency with neuro psychiatric syndrome versus other etiology no evidence of seizure on EEG x2 10/06/2024 no SI denies current psychosis Continue plan of care discharge tomorrow if stable Reason for continued inpatient stay Substantial Risk for: inability to function and rapid decompensation Time Spent With Patient Time: Total time managing care of this patient today ____ minutes.
[2024-10-06 15:23] LABS: MANUAL DIFF FLAG NO
[2024-10-06 15:25] LABS: Basophils Percent Auto 0.6 % (0-2); Eosinophils Absolute Auto 0.1 X10*3/uL (0.0-0.4); Eosinophils Percent Auto 1.3 % (0-4); Hematocrit 44.2 % (42.0-52.0); Hemoglobin 15.5 g/dl (14.0-18.0); Imm Gran Abs Auto 0.01 X10*3/uL (0.00-0.03); Imm Gran Pct Auto 0.2 % (0.0-0.4); Lymphocytes Absolute Auto 1.2 X10*3/uL (1.2-4.9); Lymphocytes Percent Auto 22.4 % (20-40); Mean Corpuscular HGB Conc 35.1 g/dl (31.0-36.0); Mean Corpuscular Volume 94.2 fL (80.0-98.0); Mean Platelet Volume 9.9 fL (9.4-12.4); Monocytes Absolute Auto 0.6 X10*3/uL (0.1-1.2); Monocytes Percent Auto 12.1 % (2-11); Neutrophils Absolute Auto 3.4 x10*3/uL (2.0-8.3); Neutrophils Percent Auto 63.4 % (45-73); Platelet Count 203 X10*3/uL (160-400); Red Blood Count 4.69 X10*6/uL (4.60-5.80); Red Cell Distribution Width 13.1 % (11.0-16.0); White Blood Count 5.3 X10*3/uL (4.8-10.8)
[2024-10-06 15:38] LABS: Alanine Aminotransferase 28 U/L (0-40); Albumin Level 4.5 g/dL (3.5-5.0); Alkaline Phosphatase 111 U/L (39-117); Anion Gap 13 (12-20); Aspartate Amino Transferase 29 U/L (5-37); Bilirubin Total 0.5 mg/dL (0.0-1.0); Blood Urea Nitrogen 12 mg/dL (9-16); Calcium 9.9 mg/dL (8.4-10.2); Carbon Dioxide 26 mmol/L (22-29); Chloride 108 mmol/L (96-108); Creatinine Clr Calc Pharmacy 73.8; Estimated Glomerular Filt Rate > 60; Glucose Random 118 mg/dL (60-115); Potassium 4.2 mmol/L (3.3-5.1); Sodium 143 mmol/L (135-145); Total Protein 7.4 g/dL (6.5-8.0)
--- NOTE | 2024-10-06 17:08 | ECG_ITS ---
Test Reason : CP Blood Pressure : */* mmHG Vent. Rate : 90 BPM Atrial Rate : * BPM P-R Int : * ms QRS Dur : 90 ms QT Int : 362 ms P-R-T Axes : * 43 29 degrees QTcB Int : 442 ms Atrial fibrillation Abnormal ECG When compared with ECG of 06-Oct-2024 15:28, No significant change was found Referred By: Dayne Diaz Electronically Signed By: XIN ROBLES
[2024-10-06 20:00] VITALS: BP 136/63; PULSE 81; TEMP 36.4; O2SAT 97
[2024-10-06] MEDS: Atorvastatin Calcium 40 MG TABLET PO (20:56)
[2024-10-06] MEDS: Mirtazapine 30 MG TABLET PO (20:56)
[2024-10-07 08:00] VITALS: BP 128/91; PULSE 102; RESP 18; TEMP 2.6; TEMP 36.7
[2024-10-07] MEDS: ARIPiprazole 5 MG TABLET 7.5 MG PO (08:25)
[2024-10-07] MEDS: LORazepam 0.5 MG TABLET PO (08:30)
[2024-10-07] MEDS: Metoprolol Succinate ER 50 MG TAB.ER.24H PO (08:31)
[2024-10-07] MEDS: levETIRAcetam 250 MG TABLET PO (08:31)
[2024-10-07] MEDS: Apixaban 5 MG TABLET PO (08:31)
[2024-10-07] MEDS: Docusate Sodium 100 MG CAPSULE PO (08:32)
[2024-10-07] MEDS: Memantine HCl 5 MG TABLET PO (08:32)
--- NOTE | 2024-10-07 09:40 | P.DS_ITS ---
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 cancel or reschedule the appointment please call the number listed. He will be putting in a neurology referral in for you once he sees you. Wendy Lai PMHNP- [facility] [Other] - 10/26/24 11:30 am Referral Note: You will be seeing Margy Aguirre on October 26 at 11:30 AM. There will be a packet of paperwork that is mailed to you before this and they request that you fill it out and bring it to your first appointment. If you need ot call or reschedule please call the number listed. [facility] [Other] - 3-5 Days Referral Note: A referral has been put in for you at [facility]. Please call the number above to set up a time to tour the place and give more information. They will be expecting your call. [facility] [Other] - 3-5 Days Referral Note: A referral to [facility] has been sent. Please reach out ot them after discharge to set up the initial appointment with the number listed. Discharge Medications: New aripiprazole 10 mg tablet 10 mg PO DAILY 30 Days Qty: 30 1RF lorazepam 0.5 mg Tablet 0.5 mg PO TID 30 Days Qty: 90 1RF levetiracetam 250 mg Tablet 250 mg PO BID 30 Days Qty: 60 0RF mirtazapine 30 mg Tablet 30 mg PO BEDTIME 30 Days Qty: 30 1RF memantine 5 mg Tablet 5 mg PO BID 30 Days Qty: 60 1RF docusate sodium 100 mg Capsule 100 mg PO BID 30 Days Qty: 60 1RF cyanocobalamin (vitamin B-12) 1,000 mcg/mL Solution 1,000 mcg IM QMONTH 30 Days Qty: 1 0RF vitamin B complex-folic acid 2,000 mcg capsule 1 cap PO DAILY Qty: 30 1RF Continued docusate sodium 100 mg Capsule 100 mg PO BID polyethylene glycol 3350 17 gram Powder In Packet 17 g PO DAILY PRN (Reason: Constipation) ibuprofen 600 mg Tablet 600 mg PO Q6H PRN (Reason: Pain) atorvastatin 40 mg Tablet 40 mg PO BEDTIME 30 Days Qty: 30 1RF metoprolol succinate 50 mg Tablet Extended Release 24 Hr 50 mg PO DAILY 30 Days Qty: 30 1RF apixaban 5 mg Tablet 5 mg PO BID 30 Days Qty: 60 1RF lidocaine 5 % Adhesive Patch,Medicated 1 patch TOPICAL DAILY 30 Days Qty: 30 1RF Rx Instructions: leave on most painful area for up to 12 hrs Discontinued levetiracetam 750 mg Tablet 1,500 mg PO BID methocarbamol 500 mg Tablet 1,000 mg PO TID PRN (Reason: Muscle Spasm) mirtazapine 15 mg Tablet 15 mg PO BEDTIME risperidone 1 mg Tablet 1 mg PO BEDTIME Discharge Orders: Discharge Order (Routine); Ordered 10/07/24 Ordered By: Dayne Diaz Diet: Advance to usual diet Activity on Discharge: As tolerated Stand Alone Forms: Patient Portal Discharge page, Community Support Print Language: Thai Care Plan Goals: stabilize mood no self harm work with therapist to help manage traumatic memories improve functioning memory processing secondary to b12 deficiency take medication as prescribed Health Concerns: b12 deficiemcy that most likely had an effect on mood cognitive abilities memory and attention Cerebellar CVA Chronic atrial fibrillation Question of seizure disorder diagnosed at [facility] that neurologist at [facility] felt were not active Plan of Treatment: Psychiatric follow-up including psychiatric provider and therapist to work with mood irrational thoughts PTSD symptoms Follow-up with your neurologist and primary care physician do not change any of your medication on your own Your taking Abilify for mood in irrational thoughts Mirtazapine for depression and anxiety at bedtime Namenda/memantine to help with cognition I have changed weekly B12 injections to monthly discuss with your primary care physician If feeling unsafe or you have suicidal thoughts go to the emergency room call 911 or the suicide hotline 365 Would recommend thorough neuropsychological testing in addition to follow-up with neurology and primary care Continue low-dose Keppra for seizures until told to by your primary care physician or neurologist Assessment: Patient alert independent ambulation no hallucinations or delusional material More aware of trauma related issues in symptoms from the past that affect him in the here and now No evidence of seizures no current catatonia symptoms mood improved no suicidal thoughts Patient has clear residual short-term memory and attentional difficulties Discharge Date/Time: 10/07/24 13:17
[2024-10-07] MEDS: Cyanocobalamin (Vitamin B-12) 1,000 MCG/ML VIAL 1000 MCG IM (12:10)
== END 2024-10-07 13:17 | disposition home health service (06) | DRG 885 ==
PROVIDERS: Nurse Practitioner Family; Registered Nurse; Admitting Provider Psychiatry & Neurology Psychiatry; Visit Provider Psychiatry & Neurology Psychiatry
DX: F32.3 Major depressive disorder, single episode, severe with psychotic features (principal); I48.20 Chronic atrial fibrillation, unspecified; R45.851 Suicidal ideations; G40.209 Localization-related (focal) (partial) symptomatic epilepsy and epileptic syndromes with complex partial seizures, not intractable, without status epilepticus; F43.10 Post-traumatic stress disorder, unspecified; E53.8 Deficiency of other specified B group vitamins; R41.9 Unspecified symptoms and signs involving cognitive functions and awareness; Z79.01 Long term (current) use of anticoagulants; Z86.73 Personal history of transient ischemic attack (TIA), and cerebral infarction without residual deficits; Z79.899 Other long term (current) drug therapy
CPT/HCPCS: 36415; 80053; 80061; 82607; 82746; 83036; 85025; 86780; 93005; 95816; J3420

== ENCOUNTER → 2024-09-14 17:44 | Outpatient (BNV) | payer OTHER, SELFPAY | PROVIDERS: Admitting Provider Psychiatry & Neurology Psychiatry; Visit Provider Psychiatry & Neurology Psychiatry | DX: F32.3 Major depressive disorder, single episode, severe with psychotic features (principal); G40.209 Localization-related (focal) (partial) symptomatic epilepsy and epileptic syndromes with complex partial seizures, not intractable, without status epilepticus; Z86.73 Personal history of transient ischemic attack (TIA), and cerebral infarction without residual deficits | CPT/HCPCS: 99232 ==

== ENCOUNTER → 2024-09-14 17:44 | Outpatient (BNV) | payer OTHER, SELFPAY | PROVIDERS: Admitting Provider Psychiatry & Neurology Psychiatry; Visit Provider Psychiatry & Neurology Psychiatry | DX: F32.3 Major depressive disorder, single episode, severe with psychotic features (principal); I63.9 Cerebral infarction, unspecified; G40.209 Localization-related (focal) (partial) symptomatic epilepsy and epileptic syndromes with complex partial seizures, not intractable, without status epilepticus; I48.20 Chronic atrial fibrillation, unspecified; E53.8 Deficiency of other specified B group vitamins | CPT/HCPCS: 99231 ==

== ENCOUNTER → 2024-09-14 17:44 | Outpatient (BNV) | payer OTHER, SELFPAY | PROVIDERS: Admitting Provider Psychiatry & Neurology Psychiatry; Visit Provider Psychiatry & Neurology Neurology | DX: G40.209 Localization-related (focal) (partial) symptomatic epilepsy and epileptic syndromes with complex partial seizures, not intractable, without status epilepticus (principal); F32.3 Major depressive disorder, single episode, severe with psychotic features; I69.398 Other sequelae of cerebral infarction | CPT/HCPCS: 99222 ==

== ENCOUNTER → 2024-09-14 17:44 | Outpatient (BNV) | payer OTHER, SELFPAY | PROVIDERS: Admitting Provider Psychiatry & Neurology Psychiatry; Visit Provider Student in an Organized Health Care Education/Training Program | DX: Z00.8 Encounter for other general examination (principal) | CPT/HCPCS: 99222 ==